=== PATIENT | male | born 1940 | race Caucasian/White ===

== ENCOUNTER 2017-06-02 10:13 | Day surgery (SDC) | payer MEDICARE, BC ==
[~2017-06-02 10:13] MED LIST: Lactated Ringers 1,000 ML IV SCH; Sodium Chloride 0.9% 10 ML Syringe FLUSH PRN
[2017-06-02] MEDS ORDERED: Sodium Chloride 0.9% 10 ML Syringe FLUSH PRN (10:15)
[2017-06-02] MEDS ORDERED: Lactated Ringers 1,000 ML IV SCH (10:15)
--- NOTE | 2017-06-02 12:37 | PCM.PN ---
- General Info Date of Service: 06/02/17 - Review of Systems Systems Review Comment:: 77-year-old male referred for colonoscopy. He says his last colon exam was 6 or 7 years ago. He denies any recent change in bowel habits. He also denies any known family history of colon cancer. He is medically stable to proceed today with no significant recent change in his health status. I have discussed the proposed colonoscopy with the patient. Risks such as but not limited to bleeding and GI injury reviewed. He appears to understand and agrees to proceed. - Patient Data Vitals - Most Recent: Last Vital Signs Temp 98.4 F 06/02/17 10:49 Pulse 55 L 06/02/17 10:49 Resp 20 06/02/17 10:49 BP 146/67 H 06/02/17 10:49 Pulse Ox 92 L 06/02/17 10:49 Weight - Most Recent: 77.111 kg Med Orders - Current: Current Medications Lactated Ringer's (Ringers, Lactated) 1,000 mls @ 125 mls/hr IV ASDIRECTED ARMIDA Last Admin: 06/02/17 11:23 Dose: 125 mls/hr Sodium Chloride (Saline Flush) 10 ml FLUSH ASDIRECTED PRN PRN Reason: Keep Vein Open - Problem List Review Problem List Initiated/Reviewed/Updated: Yes - My Orders Last 24 Hours: My Active Orders 06/02/17 10:00 Patient Status [ADT] Routine Peripheral IV Care [RC] . DIRECTED Verify Patient Consent Obtain [RC] ASDIRECTED Lactated Ringers [Ringers, Lactated] 1,000 ml IV ASDIRECTED Sodium Chloride 0.9% [Saline Flush] 10 ml FLUSH ASDIRECTED PRN Peripheral IV Insertion Adult [OM.PC] Routine - Assessment Assessment:: Colon cancer screening - Plan Plan:: Colonoscopy
[2017-06-02] MEDS ORDERED: fentaNYL 100 MCG/2 ML SDV ONE ×2 (12:44→13:20)
[2017-06-02] MEDS ORDERED: Midazolam 1 MG/ML 2 ML SDV ONE ×2 (12:45→13:20)
[2017-06-02] MEDS ORDERED: Propofol 200 MG/20 ML SDV ONE ×2 (12:45→13:20)
--- NOTE | 2017-06-02 13:30 | PCM.OPNOTE ---
- General Post-Op/Procedure Note Date of Surgery/Procedure: 06/02/17 Operative Procedure(s): Colonoscopy with polypectomy Findings: Small a descending colon polyp Moderate sigmoid diverticulosis Pre Op Diagnosis: Colon cancer screening Post-Op Diagnosis: Colon polyp. Diverticulosis Anesthesia Technique: MAC Primary Surgeon: Ernst Owens Pathology: Ascending colon polyp Output, Urine Amount: 0 EBL in mLs: 0 Complications: None Condition: Good Free Text/Narrative:: Intake & Output 06/01/17 06/02/17 06/02/17 22:59 06:59 14:59 Intake Total 900 Balance 900
--- NOTE | 2017-06-02 15:39 | OR ---
Date of Procedure: 06/02/2017 PREOPERATIVE DIAGNOSIS: Colon cancer screening. POSTOPERATIVE DIAGNOSES: Colon polyp and diverticulosis. OPERATION PERFORMED: Colonoscopy with polypectomy. INDICATIONS FOR SURGERY: This is a 77-year-old male, comes for a colonoscopy. His last colon exam was 6 to 7 years ago. FINDINGS: The patient has a moderate degree of sigmoid diverticulosis, which does not appear to be acutely inflamed. A single polyp in the ascending colon, which is 6 mm in diameter and sessile in configuration was identified and removed. DESCRIPTION OF PROCEDURE: The patient was taken to the operating room. He was given intravenous sedation, and with him in the left lateral decubitus position, digital rectal exam was performed, showing no rectal masses. The Olympus colonoscope was inserted into the rectum. Retroflexed examination of the rectal canal was performed. The scope was then carefully advanced under direct visualization through the entire length of the colon until the cecum was reached. Cecal acquisition was confirmed by noting the normal internal cecal anatomy including the appendiceal orifice and ileocecal valve. The light was also noted to transilluminate the abdominal wall of the right lower quadrant. After examining the cecum, the scope was slowly withdrawn. In the ascending colon, the above-described polyp was identified and it was removed with a cautery snare and retrieved into a polyp trap. The scope was then further withdrawn allowing sequentially reexamination of the all the colonic segments. With no sign of complication, the procedure was terminated after the examination had been complete and the scope was removed. The patient then was taken from the operating room in satisfactory condition. ESTIMATED BLOOD LOSS: Zero. COMPLICATIONS: None. PROGNOSIS: Good. AKHIL Owens MD /[id number]
== END 2017-06-02 15:08 | disposition home or self-care (01) ==
LOC: LL.SDS 10:13
PROVIDERS: ATTEND Surgery
DX: Z12.11 Encounter for screening for malignant neoplasm of colon (principal); D12.2 Benign neoplasm of ascending colon; K57.30 Diverticulosis of large intestine without perforation or abscess without bleeding; Z79.82 Long term (current) use of aspirin; Z79.899 Other long term (current) drug therapy; Z87.891 Personal history of nicotine dependence
CPT/HCPCS: 00810-QZ; 00812; 88305; J2250; J2704; J3010; J7120

== ENCOUNTER 2018-12-18 12:13 | Emergency (ER) | payer MEDICARE, BC ==
[2018-12-18 12:52] LABS: CHLORIDE,CL 106 mmol/L (98-107); SODIUM,NA 144 mmol/L (136-145)
[2018-12-18] MEDS ORDERED: Ondansetron 4 MG Tab.DIS PO ONE (12:56)
[2018-12-18] MEDS ORDERED: Acetaminophen/oxyCODONE 325-5 MG Tab PO ONE (12:58)
--- NOTE | 2018-12-18 13:02 | EDM.PDOC ---
ED HPI GENERAL MEDICAL PROBLEM - General Chief Complaint: Back Pain or Injury Stated Complaint: Back pain Time Seen by Provider: 12/18/18 12:38 Source of Information: Reports: Patient History Limitations: Reports: No Limitations - History of Present Illness INITIAL COMMENTS - FREE TEXT/NARRATIVE: One week history of worsening pain/swelling in upper buttock area on left. Has history of pilonidal cysts but has not had a major issue with it for "30 years". Pain has worsened. He did try to see if chiropractic adjustment would help but it did not. No fevers/chills. Did take ibuprofen earlier today. Small amount of drainage noted per patient. Pain radiates slightly up left lower back and down left upper leg. Unable to sit without pain. Preferred position is to lay on his side to avoid pressure on involved area. No other changes/complaints reported during ROS. Was placed on Keflex by his local provider but has not observed any improvement. Normal BP is around 130 systolic per patient. Suspects elevated reading noted during visit is due to discomfort from the cyst. Lower back pain Pain Score (Numeric/FACES): 7 - Related Data Allergies Allergy/AdvReac Type Severity Reaction Status Date / Time polyester fibers Allergy Rash Verified 12/18/18 12:34 Home Meds: Home Meds Ascorbic Acid [Vitamin C] 1,000 mg PO DAILY 06/02/17 [History] Aspirin [Halfprin] 81 mg PO QAM 06/02/17 [History] Atenolol 1 tab PO BID 06/02/17 [History] Calcium Carbonate [Calcium] 500 mg PO TID 06/02/17 [History] Cholecalciferol (Vitamin D3) [Vitamin D3] 2 cap PO DAILY 06/02/17 [History] Cyanocobalamin/Folic AC/Vit B6 [Folbee] 1 tab PO DAILY 06/02/17 [History] Finasteride 1 tab PO DAILY 06/02/17 [History] Fluocinonide [Lidex 0.05% Crm] 1 applic TOP ASDIRECTED PRN 06/02/17 [History] Fluticasone Propionate [Flonase] 2 spray NASBOTH DAILY 06/02/17 [History] Ibuprofen 2 cap PO Q4H PRN 06/02/17 [History] Mometasone Furoate [Asmanex] 1 puff INH ASDIRECTED 06/02/17 [History] Non-Formulary Medication [NF Drug] 2 ml PO BID 06/02/17 [History] Pramoxine HCl [Prax] 1 applic TP ASDIRECTED PRN 06/02/17 [History] amLODIPine [Norvasc] 10 mg PO BEDTIME 06/02/17 [History] atorvaSTATin Calcium [Atorvastatin Calcium] 80 mg PO DAILY 06/02/17 [History] cephALEXin [Cephalexin] 1 cap PO [id number] 12/18/18 [History] Past Medical History HEENT History: Reports: Cataract Other HEENT History: right cataract Cardiovascular History: Reports: High Cholesterol, Hypertension Respiratory History: Reports: COPD Gastrointestinal History: Reports: GERD, PUD Genitourinary History: Reports: Renal Calculus Other Genitourinary History: hematuria, elevated PSA Musculoskeletal History: Reports: Fracture, Osteoarthritis, Osteoporosis Neurological History: Reports: None Psychiatric History: Reports: None Endocrine/Metabolic History: Reports: Vitamin D Deficiency Hematologic History: Reports: Blood Transfusion(s), Folic Acid Immunologic History: Reports: None Oncologic (Cancer) History: Reports: None Dermatologic History: Reports: Eczema - Past Surgical History GI Surgical History: Reports: Colonoscopy, EGD Male Surgical History: Reports: Prostate Biopsy Musculoskeletal Surgical History: Reports: Other (See Below) Other Dermatological Surgeries/Procedures: Pilonidal cyst Social & Family History - Tobacco Use Smoking Status *Q: Former Smoker Used Tobacco, but Quit: No Month/Year Tobacco Last Used: Quit smoking cigarettes 15 yrs ago. Currently uses chewing tobacco Tobacco Use Comment: Has been using chewing tobacco occassioanlly since he quit smoking cigarettes. One tin will last 2 weeks Second Hand Smoke Exposure: No - Caffeine Use Caffeine Use: Reports: Coffee - Recreational Drug Use Recreational Drug Use: No ED ROS GENERAL - Review of Systems Review Of Systems: ROS reveals no pertinent complaints other than HPI. ED EXAM, GENERAL - Physical Exam Exam: See Below Exam Limited By: No Limitations General Appearance: Alert, WD/WN, No Apparent Distress, Other (laying on left side) Eye Exam: Bilateral Eye: EOMI, PERRL Nose: No: Nasal Deformity, Nasal Swelling, Nasal Drainage Throat/Mouth: Normal Voice, No Airway Compromise Head: Atraumatic, Normocephalic Neck: Supple Respiratory/Chest: No Respiratory Distress GI/Abdominal: Soft, Non-Tender Rectal (Males) Exam: Perirectal Abscess (small amount of drainage noted) Back Exam: No: CVA Tenderness (L), CVA Tenderness (R), Muscle Spasm, Paraspinal Tenderness, Vertebral Tenderness Extremities: Non-Tender, Normal Capillary Refill Neurological: Alert, Oriented, Normal Cognition Psychiatric: Normal Affect, Normal Mood Skin Exam: Warm Course - Vital Signs Last Recorded V/S: Last Vital Signs Temp 36.7 C 12/18/18 12:17 Pulse 78 12/18/18 12:17 Resp 18 12/18/18 12:17 BP 185/44 H 12/18/18 12:17 Pulse Ox 93 L 12/18/18 12:17 - Orders/Labs/Meds Orders: Active Orders 24 hr Category Date Time Status UA W/MICROSCOPIC [URIN] Stat Lab 12/18/18 12:17 Ordered Labs: Laboratory Tests 12/18/18 12/18/18 Range/Units 12:20 12:20 WBC 11.4 H (4.0-10.2) K/uL RBC 3.88 L (4.33-5.41) M/uL Hgb 12.2 L (13.1-16.8) g/dL Hct 35.8 L (39.0-49.0) % MCV 92.3 (84.0-98.0) fL MCH 31.4 (28.2-33.3) pg MCHC 34.1 (31.7-36.0) g/dL RDW 13.6 (11.2-14.1) % Plt Count 269 (150-350) K/uL Neut % (Auto) 79.6 (45.0-80.0) % Lymph % (Auto) 10.2 (10.0-50.0) % Bowman % (Auto) 8.7 (2.0-14.0) % Eos % (Auto) 1.3 (0.0-5.0) % Baso % (Auto) 0.2 (0.0-2.0) % Neut # (Auto) 9.06 H (1.40-7.00) K/uL Lymph # (Auto) 1.16 (0.50-3.50) K/uL Bowman # (Auto) 0.99 (0.00-1.00) K/uL Eos # (Auto) 0.15 (0.00-0.50) K/uL Baso # (Auto) 0.02 (0.00-0.20) K/uL Sodium 144 (136-145) mmol/L Potassium 3.9 (3.5-5.1) mmol/L Chloride 106 (98-107) mmol/L Carbon Dioxide 27.1 (21.0-32.0) mmol/L BUN 21 H (7-18) mg/dL Creatinine 0.99 (0.51-1.17) mg/dL Est Cr Clr Drug Dosing 68.64 mL/min Estimated GFR (MDRD) > 60 mL/min Glucose 120 H (74-106) mg/dL Calcium 9.7 (8.5-10.1) mg/dL Total Bilirubin 0.5 (0.2-1.0) mg/dL AST 20 (15-37) U/L ALT 34 (12-78) U/L Alkaline Phosphatase 70 (46-116) IU/L Total Protein 6.8 (6.4-8.2) g/dL Albumin 2.6 L (3.4-5.0) g/dL Meds: Medications Discontinued Medications Generic Name Dose Route Start Last Admin Trade Name Freq PRN Reason Stop Dose Admin Ondansetron HCl 4 mg 12/18/18 12:56 Zofran Odt PO 12/18/18 12:57 ONETIME ONE Oxycodone/Acetaminophen 2 tab 12/18/18 12:58 Percocet 325-5 Mg PO 12/18/18 12:59 ONETIME ONE - Re-Assessments/Exams Free Text/Narrative Re-Assessment/Exam: 12/18/18 13:08 For now will have patient continue the Keflex. The definitive treatment for a pilonidal abscess is an I&D however. Call placed to who was front end developer for surgery at [facility] in [place]. He is willing to see the patient this afternoon to evaluate him for an I&D at the [facility]. Patient is able to have his son drive him to the clinic. One dose of Zofran and Percocet was given to the patient in the ER to help with discomfort. He was discharged from the ER and is to present to the [facility] in [place] later this afternoon for his appointment. Departure - Departure Time of Disposition: 13:15 Disposition: Home, Self-Care 01 Condition: Good Clinical Impression: Cyst, pilonidal, with abscess - Discharge Information *PRESCRIPTION DRUG MONITORING PROGRAM REVIEWED*: Not Applicable *COPY OF PRESCRIPTION DRUG MONITORING REPORT IN PATIENT TINO: Not Applicable Instructions: Pilonidal Cyst Referrals: Ronaldo Gonzalez PA [Primary Care Provider] - Forms: ED Department Discharge Additional Instructions: Follow up this afternoon at [facility] in [place] and have cyct incised and drained by . Aftercare instructions per . Follow up otherwise as needed if you have further/worsening problems. Drive directly to the clinic after discharge from the ER as they are waiting for you. - My Orders Last 24 Hours: My Active Orders 12/18/18 12:17 UA W/MICROSCOPIC [URIN] Stat - Assessment/Plan Last 24 Hours: My Active Orders 12/18/18 12:17 UA W/MICROSCOPIC [URIN] Stat
== END 2018-12-18 13:55 | disposition home or self-care (01) ==
LOC: LL.ED 12:13
DX: L05.01 Pilonidal cyst with abscess (principal); I10 Essential (primary) hypertension; J44.9 Chronic obstructive pulmonary disease, unspecified; K21.9 Gastro-esophageal reflux disease without esophagitis; Z91.048 Other nonmedicinal substance allergy status; Z79.82 Long term (current) use of aspirin; Z79.899 Other long term (current) drug therapy; E78.00 Pure hypercholesterolemia, unspecified; Z87.442 Personal history of urinary calculi; Z87.891 Personal history of nicotine dependence
CPT/HCPCS: 36415; 80053; 85025; 99283; A9270

== ENCOUNTER 2019-03-06 14:20 | Inpatient (IN) | payer MEDICARE, BC ==
--- NOTE | 2019-03-06 16:37 | PCM.HP.2 ---
H&P History of Present Illness - General Date of Service: 03/06/19 Source of Information: Patient, Family History Limitations: Reports: No Limitations, Altered Mental Status - History of Present Illness Initial Comments - Free Text/Narative: Patient is a 78-year-old gentleman who was admitted at [facility] with chief complaint of degenerative degenerated lumbar intervertebral disc disease patient underwent multiple lumbar disc discectomies level lumbar 345 with familia placement Onset of Symptoms: Reports: Gradual Duration of Symptoms: Reports: Chronic, Constant Location: Reports: Back Quality: Reports: Ache, Throbbing Severity: Moderate Improves with: Reports: Other (Surgery) Worsens with: Reports: Other Lower Back Pain Score (Numeric/FACES): 8 - Related Data Allergies/Adverse Reactions: Allergies Allergy/AdvReac Type Severity Reaction Status Date / Time polyester fibers Allergy Rash Verified 12/18/18 12:34 Home Medications: Home Meds Ascorbic Acid [Vitamin C] 1,000 mg PO DAILY 06/02/17 [History] Aspirin [Halfprin] 81 mg PO QAM 06/02/17 [History] Atenolol 1 tab PO BID 06/02/17 [History] Calcium Carbonate [Calcium] 1,500 mg PO BID 06/02/17 [History] Cholecalciferol (Vitamin D3) [Vitamin D3] 2 cap PO DAILY 06/02/17 [History] Cyanocobalamin/Folic AC/Vit B6 [Folbee] 1 tab PO DAILY 06/02/17 [History] Finasteride 1 tab PO DAILY 06/02/17 [History] Fluticasone Propionate [Flonase] 2 spray NASBOTH DAILY 06/02/17 [History] Mometasone Furoate [Asmanex] 1 puff INH DAILY 06/02/17 [History] Non-Formulary Medication [NF Drug] 2 ml PO BID 06/02/17 [History] Pramoxine HCl [Prax] 1 applic TP ASDIRECTED PRN 06/02/17 [History] amLODIPine [Norvasc] 10 mg PO BEDTIME 06/02/17 [History] atorvaSTATin Calcium [Atorvastatin Calcium] 80 mg PO DAILY 06/02/17 [History] Cyclobenzaprine [Flexeril] 10 mg PO Q8HR PRN 03/06/19 [History] Omeprazole 20 mg PO DAILY 03/06/19 [History] oxyCODONE 5 mg PO Q4HR PRN 03/06/19 [History] Past Medical History HEENT History: Reports: Cataract Other HEENT History: right cataract Cardiovascular History: Reports: High Cholesterol, Hypertension Respiratory History: Reports: COPD Gastrointestinal History: Reports: GERD, PUD Genitourinary History: Reports: Renal Calculus Other Genitourinary History: hematuria, elevated PSA Musculoskeletal History: Reports: Fracture, Osteoarthritis, Osteoporosis Neurological History: Reports: None Psychiatric History: Reports: None Endocrine/Metabolic History: Reports: Vitamin D Deficiency Hematologic History: Reports: Blood Transfusion(s), Folic Acid Immunologic History: Reports: None Oncologic (Cancer) History: Reports: None Dermatologic History: Reports: Eczema - Past Surgical History GI Surgical History: Reports: Colonoscopy, EGD Male Surgical History: Reports: Prostate Biopsy Neurological Surgical History: Reports: Spinal Fusion Musculoskeletal Surgical History: Reports: Other (See Below) Social & Family History - Tobacco Use Smoking Status *Q: Former Smoker Used Tobacco, but Quit: Yes Month/Year Tobacco Last Used: 10/2017 - Caffeine Use Caffeine Use: Reports: Coffee, Soda - Recreational Drug Use Recreational Drug Use: No H&P Review of Systems - Review of Systems: Review Of Systems: See Below General: Reports: Weakness HEENT: Reports: No Symptoms Pulmonary: Reports: Shortness of Breath Cardiovascular: Reports: No Symptoms Gastrointestinal: Reports: No Symptoms Genitourinary: Reports: No Symptoms Musculoskeletal: Reports: Back Pain Skin: Reports: No Symptoms Psychiatric: Reports: No Symptoms Neurological: Reports: Confusion Hematologic/Lymphatic: Reports: No Symptoms Immunologic: Reports: No Symptoms Exam - Exam Exam: See Below - Vital Signs Vital Signs: Last Vital Signs Temp 100.8 F H 03/06/19 14:35 Pulse 67 03/06/19 14:35 Resp 20 03/06/19 14:35 BP 188/74 H 03/06/19 14:35 Pulse Ox 96 03/06/19 14:35 Weight: 221 lb - Exam General: Alert, Oriented, 4 HEENT: PERRLA, Hearing Intact, Mucosa Moist & [place], Nares Patent, Normal Nasal Septum, Posterior Pharynx Clear, Conjunctiva Clear, EOMI, EACs Clear, TMs Clear Neck: Supple, Trachea Midline, 2 Lungs: Decreased Breath Sounds, Rales Cardiovascular: Regular Rate, Regular Rhythm GI/Abdominal Exam: Normal Bowel Sounds, Soft, Non-Tender, No Organomegaly, No Distention, No Abnormal Bruit, No Mass, Pelvis Stable (Male) Exam: Deferred Rectal (Males) Exam: Deferred Back Exam: Decreased Range of Motion Extremities: Normal Inspection, Normal Range of Motion, Non-Tender, No Pedal Edema, Normal Capillary Refill Skin: Warm, Dry, Intact Neurological: Cranial Nerves Intact, Reflexes Equal Bilateral Neuro Extensive - Mental Status: Alert Psychiatric: Alert, Normal Affect - Problem List (1) Lumbar degenerative disc disease SNOMED Code(s): 42716217 ICD Code: M51.36 - OTHER INTERVERTEBRAL DISC DEGENERATION, LUMBAR REGION Status: Acute Current Visit: Yes Problem Details: Ration will be admitted to swing bed for strengthening and rehabilitation Problem List Initiated/Reviewed/Updated: Yes - Mortality Measure Prognosis:: Good
[2019-03-06] MEDS ORDERED: oxyCODONE 5 MG Tab PO PRN (16:48)
[2019-03-06] MEDS ORDERED: Camphor/Menthol 0.5-0.5% Lotion 222 ML Bottle TOP PRN (16:50)
[2019-03-06] MEDS ORDERED: Acetaminophen 325 MG Tab PO PRN (17:24)
[2019-03-06] MEDS: Atenolol 25 MG Tab PO SCH (17:56)
[2019-03-06] MEDS ORDERED: Calcium Carbonate 500 MG Tablet PO SCH (18:00)
[2019-03-06] MEDS ORDERED: Calcium Carbonate 500 MG Tab.Chew PO SCH (18:15)
[2019-03-06] MEDS: Calcium Carbonate 750 MG Tab.Chew PO SCH (19:31)
[2019-03-06] MEDS: Cyclobenzaprine 10 MG Tab PO PRN (19:32)
[2019-03-06] MEDS: amLODIPine 5 MG Tab PO SCH (19:32)
[2019-03-06] MEDS: APPLE CIDER VINEGAR PO SCH (19:32)
[2019-03-06] MEDS: Acetaminophen 325 MG Tab PO PRN (19:33)
[2019-03-07 07:51] LABS: CHLORIDE,CL 105 mmol/L (98-107); SODIUM,NA 140 mmol/L (136-145)
[2019-03-07] MEDS: Fluticasone Propionate Nasal Spray 16 GM Bottle NASBOTH SCH (07:59)
[2019-03-07] MEDS: Aspirin 81 MG Tab.EC PO SCH (07:59)
[2019-03-07] MEDS ORDERED: Vitamin B Complex Tab PO SCH (08:00)
[2019-03-07] MEDS: atorvaSTATin 40 MG Tab PO SCH (08:00)
[2019-03-07] MEDS: Omeprazole 20 MG Cap.CR PO SCH (08:00)
[2019-03-07] MEDS ORDERED: Mometasone Furoate HFA 100mcg/Puff 13 GM Inhaler INH SCH (08:00)
[2019-03-07] MEDS: Finasteride 5 MG Tab PO SCH (08:00)
[2019-03-07] MEDS: Calcium Carbonate 750 MG Tab.Chew PO SCH (08:01)
[2019-03-07] MEDS: Atenolol 25 MG Tab PO SCH ×2 (08:01→17:21)
[2019-03-07] MEDS: Ascorbic Acid 500 MG Tab PO SCH (09:33)
[2019-03-07] MEDS: Mometasone Furoate Powder 220 MCG/Puff 14 Dose Inhaler INH SCH (09:33)
[2019-03-07] MEDS: Cholecalciferol (Vitamin D3) 10 MCG Tab PO SCH (09:34)
[2019-03-07] MEDS: Acetaminophen 325 MG Tab PO PRN (09:37)
[2019-03-07] MEDS: APPLE CIDER VINEGAR PO SCH (09:41)
[2019-03-07] MEDS: Cyanocobalamin/Folic Acid/Pyridoxine Tab PO SCH (12:30)
[2019-03-07] MEDS: amLODIPine 5 MG Tab PO SCH (19:05)
[2019-03-08] MEDS: Mometasone Furoate Powder 220 MCG/Puff 14 Dose Inhaler INH SCH (07:19)
[2019-03-08] MEDS: Fluticasone Propionate Nasal Spray 16 GM Bottle NASBOTH SCH (07:19)
[2019-03-08] MEDS: Cyanocobalamin/Folic Acid/Pyridoxine Tab PO SCH (07:19)
[2019-03-08] MEDS: Aspirin 81 MG Tab.EC PO SCH (07:20)
[2019-03-08] MEDS: atorvaSTATin 40 MG Tab PO SCH (07:20)
[2019-03-08] MEDS: Omeprazole 20 MG Cap.CR PO SCH (07:21)
[2019-03-08] MEDS: Finasteride 5 MG Tab PO SCH (07:22)
[2019-03-08] MEDS: Calcium Carbonate 750 MG Tab.Chew PO SCH (07:22)
[2019-03-08] MEDS: Ascorbic Acid 500 MG Tab PO SCH (07:23)
[2019-03-08] MEDS: Cholecalciferol (Vitamin D3) 10 MCG Tab PO SCH (07:24)
[2019-03-08] MEDS: Atenolol 25 MG Tab PO SCH ×2 (07:31→17:16)
[2019-03-08] MEDS: Acetaminophen 325 MG Tab PO PRN (07:32)
[2019-03-08] MEDS: Cyclobenzaprine 10 MG Tab PO PRN (12:37)
[2019-03-08] MEDS: amLODIPine 5 MG Tab PO SCH (19:44)
[2019-03-09] MEDS: Acetaminophen 325 MG Tab PO PRN ×2 (01:19→21:34)
[2019-03-09] MEDS: Cyclobenzaprine 10 MG Tab PO PRN ×3 (01:21→21:33)
[2019-03-09] MEDS: Fluticasone Propionate Nasal Spray 16 GM Bottle NASBOTH SCH (07:49)
[2019-03-09] MEDS: Cholecalciferol (Vitamin D3) 10 MCG Tab PO SCH (07:49)
[2019-03-09] MEDS: Mometasone Furoate Powder 220 MCG/Puff 14 Dose Inhaler INH SCH (07:50)
[2019-03-09] MEDS: Aspirin 81 MG Tab.EC PO SCH (07:52)
[2019-03-09] MEDS: Cyanocobalamin/Folic Acid/Pyridoxine Tab PO SCH (07:52)
[2019-03-09] MEDS: atorvaSTATin 40 MG Tab PO SCH (07:53)
[2019-03-09] MEDS: Finasteride 5 MG Tab PO SCH (07:54)
[2019-03-09] MEDS: Omeprazole 20 MG Cap.CR PO SCH (07:54)
[2019-03-09] MEDS: Atenolol 25 MG Tab PO SCH ×2 (07:55→17:09)
[2019-03-09] MEDS: Ascorbic Acid 500 MG Tab PO SCH (07:55)
[2019-03-09] MEDS: Calcium Carbonate 750 MG Tab.Chew PO SCH (07:56)
[2019-03-09] MEDS: amLODIPine 5 MG Tab PO SCH (21:33)
[2019-03-10] MEDS: Atenolol 25 MG Tab PO SCH ×2 (07:54→17:06)
[2019-03-10] MEDS: Omeprazole 20 MG Cap.CR PO SCH (07:54)
[2019-03-10] MEDS: Cyclobenzaprine 10 MG Tab PO PRN (07:55)
[2019-03-10] MEDS: Finasteride 5 MG Tab PO SCH (07:55)
[2019-03-10] MEDS: atorvaSTATin 40 MG Tab PO SCH (07:55)
[2019-03-10] MEDS: Ascorbic Acid 500 MG Tab PO SCH (07:56)
[2019-03-10] MEDS: Cyanocobalamin/Folic Acid/Pyridoxine Tab PO SCH (07:56)
[2019-03-10] MEDS: Mometasone Furoate Powder 220 MCG/Puff 14 Dose Inhaler INH SCH (07:56)
[2019-03-10] MEDS: Fluticasone Propionate Nasal Spray 16 GM Bottle NASBOTH SCH (07:57)
[2019-03-10] MEDS: Aspirin 81 MG Tab.EC PO SCH (09:14)
[2019-03-10] MEDS: Calcium Carbonate 750 MG Tab.Chew PO SCH (09:15)
[2019-03-10] MEDS: Cholecalciferol (Vitamin D3) 10 MCG Tab PO SCH (09:15)
[2019-03-10] MEDS: amLODIPine 5 MG Tab PO SCH (19:27)
[2019-03-11] MEDS: Cholecalciferol (Vitamin D3) 10 MCG Tab PO SCH (08:08)
[2019-03-11] MEDS: Mometasone Furoate Powder 220 MCG/Puff 14 Dose Inhaler INH SCH (08:09)
[2019-03-11] MEDS: Fluticasone Propionate Nasal Spray 16 GM Bottle NASBOTH SCH (08:09)
[2019-03-11] MEDS: Cyanocobalamin/Folic Acid/Pyridoxine Tab PO SCH (08:11)
[2019-03-11] MEDS: Ascorbic Acid 500 MG Tab PO SCH (08:11)
[2019-03-11] MEDS: Atenolol 25 MG Tab PO SCH ×2 (08:12→17:08)
[2019-03-11] MEDS: atorvaSTATin 40 MG Tab PO SCH (08:12)
[2019-03-11] MEDS: Finasteride 5 MG Tab PO SCH (08:13)
[2019-03-11] MEDS: Omeprazole 20 MG Cap.CR PO SCH (08:13)
[2019-03-11] MEDS: Calcium Carbonate 750 MG Tab.Chew PO SCH (08:14)
[2019-03-11] MEDS: Aspirin 81 MG Tab.EC PO SCH (08:14)
[2019-03-11] MEDS: amLODIPine 5 MG Tab PO SCH (19:37)
[2019-03-11] MEDS: Cyclobenzaprine 10 MG Tab PO PRN (19:37)
[2019-03-12] MEDS: Acetaminophen 325 MG Tab PO PRN (06:21)
[2019-03-12] MEDS: Cyclobenzaprine 10 MG Tab PO PRN (06:22)
[2019-03-12] MEDS: Fluticasone Propionate Nasal Spray 16 GM Bottle NASBOTH SCH (08:00)
[2019-03-12] MEDS: Mometasone Furoate Powder 220 MCG/Puff 14 Dose Inhaler INH SCH (08:00)
[2019-03-12] MEDS: Cholecalciferol (Vitamin D3) 10 MCG Tab PO SCH (08:02)
[2019-03-12] MEDS: Aspirin 81 MG Tab.EC PO SCH (08:03)
[2019-03-12] MEDS: Cyanocobalamin/Folic Acid/Pyridoxine Tab PO SCH (08:03)
[2019-03-12] MEDS: Omeprazole 20 MG Cap.CR PO SCH (08:03)
[2019-03-12] MEDS: Finasteride 5 MG Tab PO SCH (08:03)
[2019-03-12] MEDS: Ascorbic Acid 500 MG Tab PO SCH (08:03)
[2019-03-12] MEDS: Atenolol 25 MG Tab PO SCH ×2 (08:03→17:18)
[2019-03-12] MEDS: atorvaSTATin 40 MG Tab PO SCH (08:03)
[2019-03-12] MEDS: Calcium Carbonate 750 MG Tab.Chew PO SCH (08:04)
[2019-03-12] MEDS: amLODIPine 5 MG Tab PO SCH (19:06)
[2019-03-13] MEDS: Mometasone Furoate Powder 220 MCG/Puff 14 Dose Inhaler INH SCH (07:58)
[2019-03-13] MEDS: Fluticasone Propionate Nasal Spray 16 GM Bottle NASBOTH SCH (07:59)
[2019-03-13] MEDS: Aspirin 81 MG Tab.EC PO SCH (08:01)
[2019-03-13] MEDS: Cyanocobalamin/Folic Acid/Pyridoxine Tab PO SCH (08:01)
[2019-03-13] MEDS: atorvaSTATin 40 MG Tab PO SCH (08:02)
[2019-03-13] MEDS: Omeprazole 20 MG Cap.CR PO SCH (08:02)
[2019-03-13] MEDS: Calcium Carbonate 750 MG Tab.Chew PO SCH (08:03)
[2019-03-13] MEDS: Finasteride 5 MG Tab PO SCH (08:03)
[2019-03-13] MEDS: Atenolol 25 MG Tab PO SCH ×2 (08:03→17:20)
[2019-03-13] MEDS: Cholecalciferol (Vitamin D3) 10 MCG Tab PO SCH (08:04)
[2019-03-13] MEDS: Ascorbic Acid 500 MG Tab PO SCH (08:04)
[2019-03-13] MEDS: amLODIPine 5 MG Tab PO SCH (19:05)
[2019-03-14] MEDS: Fluticasone Propionate Nasal Spray 16 GM Bottle NASBOTH SCH (07:45)
[2019-03-14] MEDS: Mometasone Furoate Powder 220 MCG/Puff 14 Dose Inhaler INH SCH (07:45)
[2019-03-14] MEDS: Cyanocobalamin/Folic Acid/Pyridoxine Tab PO SCH (07:46)
[2019-03-14] MEDS: Aspirin 81 MG Tab.EC PO SCH (07:46)
[2019-03-14] MEDS: Omeprazole 20 MG Cap.CR PO SCH (07:47)
[2019-03-14] MEDS: atorvaSTATin 40 MG Tab PO SCH (07:47)
[2019-03-14] MEDS: Atenolol 25 MG Tab PO SCH ×2 (07:48→17:13)
[2019-03-14] MEDS: Finasteride 5 MG Tab PO SCH (07:48)
[2019-03-14] MEDS: Calcium Carbonate 750 MG Tab.Chew PO SCH (07:49)
[2019-03-14] MEDS: Ascorbic Acid 500 MG Tab PO SCH (07:49)
[2019-03-14] MEDS: Cholecalciferol (Vitamin D3) 10 MCG Tab PO SCH (07:50)
[2019-03-14] MEDS: amLODIPine 5 MG Tab PO SCH (19:30)
[2019-03-14] MEDS: Acetaminophen 325 MG Tab PO PRN (19:31)
[2019-03-15] MEDS: Cyanocobalamin/Folic Acid/Pyridoxine Tab PO SCH (08:02)
[2019-03-15] MEDS: Fluticasone Propionate Nasal Spray 16 GM Bottle NASBOTH SCH (08:02)
[2019-03-15] MEDS: Aspirin 81 MG Tab.EC PO SCH (08:03)
[2019-03-15] MEDS: Omeprazole 20 MG Cap.CR PO SCH (08:04)
[2019-03-15] MEDS: atorvaSTATin 40 MG Tab PO SCH (08:04)
[2019-03-15] MEDS: Finasteride 5 MG Tab PO SCH (08:04)
[2019-03-15] MEDS: Atenolol 25 MG Tab PO SCH ×2 (08:05→17:33)
[2019-03-15] MEDS: Ascorbic Acid 500 MG Tab PO SCH (08:05)
[2019-03-15] MEDS: Calcium Carbonate 750 MG Tab.Chew PO SCH (08:05)
[2019-03-15] MEDS: Cholecalciferol (Vitamin D3) 10 MCG Tab PO SCH (08:06)
[2019-03-15] MEDS: Mometasone Furoate Powder 220 MCG/Puff 14 Dose Inhaler INH SCH (11:52)
--- NOTE | 2019-03-15 13:15 | PCM.DCSUM1 ---
Discharge Summary - Hospital Course Free Text/Narrative:: Patient was admitted to [facility] for PT/OT after lumbar spine surgery. Patient had multiple lumbar discectomies with familia placement. He was here for rehabilitiation of strengthening, ambulation and ADL care with PT and OT. He has reached his baseline of function and is ready to discharge home. He elects to go home without services as he does not plan to remain homebound. He is active and wants to remain part of the community. He has minimal pain to his lumbar spine area. He does note some radiation of pain occasionally down his left leg, but this does not interfere with his ambulation or abilities. He does not use pain medication for pain control. He will be discharged to his home on 03/16/2019. Patient will return to his PCP on 03/21/19 for staple removal. He has a follow up appointment on 03/26/19 at 10:15am with his surgeon Dr. Nam Wilder DO at [phone] [facility]. - Discharge Data Discharge Date: 03/16/19 Discharge Disposition: Home, Self-Care 01 Condition: Good - Referral to Home Health Primary Care Physician: Yo Pandey MD - Patient Summary/Data Consults: Consultations 03/07/19 08:38 PT Evaluation and Treatment [CONS] Routine 03/07/19 08:39 OT Evaluation and Treatment [CONS] Routine - Patient Instructions Diet: Usual Diet as Tolerated Activity: Apply Ice, As Tolerated Driving: May Drive Today Showering/Bathing: May Shower Wound/Incision Care: Keep Operative Site/Wound Site Clean and Dry Notify Provider of: Fever, Increased Pain, Swelling and Redness, Drainage - Discharge Plan *PRESCRIPTION DRUG MONITORING PROGRAM REVIEWED*: Not Applicable *COPY OF PRESCRIPTION DRUG MONITORING REPORT IN PATIENT TINO: Not Applicable Prescriptions/Med Rec: Cyclobenzaprine [Flexeril] 10 mg PO Q8HR PRN 4 Days #12 tablet PRN Reason: Other Atenolol 1 tab PO BID 30 Days #60 tablet atorvaSTATin Calcium [Atorvastatin Calcium] 80 mg PO DAILY 30 Days #30 tablet Finasteride 1 tab PO DAILY 30 Days #30 tablet Home Medications: Home Meds Ascorbic Acid [Vitamin C] 1,000 mg PO DAILY 06/02/17 [History] Aspirin [Halfprin] 81 mg PO QAM 06/02/17 [History] Calcium Carbonate [Calcium] 1,500 mg PO DAILY 06/02/17 [History] Cholecalciferol (Vitamin D3) [Vitamin D3] 2 cap PO DAILY 06/02/17 [History] Cyanocobalamin/Folic AC/Vit B6 [Folbee] 1 tab PO DAILY 06/02/17 [History] Fluticasone Propionate [Flonase] 2 spray NASBOTH DAILY 06/02/17 [History] Non-Formulary Medication [NF Drug] 2 ml PO BID 06/02/17 [History] Pramoxine HCl [Prax] 1 applic TP ASDIRECTED PRN 06/02/17 [History] amLODIPine [Norvasc] 10 mg PO BEDTIME 06/02/17 [History] Omeprazole 20 mg PO DAILY 03/06/19 [History] Mometasone Furoate [Asmanex 220 MCG] 1 puff PO DAILY 03/07/19 [History] Acetaminophen [Tylenol] 650 mg PO Q4H PRN tablet 03/15/19 [Rx] Atenolol 1 tab PO BID 30 Days #60 tablet 03/15/19 [Rx] Calcium Carbonate [Tums Extra Strength] 1,500 mg PO DAILY tab.chew 03/15/19 [Rx ] Cyanocobalamin/FA/Pyridoxine [Folbic] 1 tab PO DAILY tablet 03/15/19 [Rx] Cyclobenzaprine [Flexeril] 10 mg PO Q8HR PRN 4 Days #12 tablet 03/15/19 [Rx] Finasteride 1 tab PO DAILY 30 Days #30 tablet 03/15/19 [Rx] Mometasone Furoate [Asmanex 220 MCG] 0 puff INH DAILY inhaler 03/15/19 [Rx] atorvaSTATin Calcium [Atorvastatin Calcium] 80 mg PO DAILY 30 Days #30 tablet [Rx] - Discharge Summary/Plan Comment DC Time >30 min.: Yes - General Info Date of Service: 03/15/19 Admission Dx/Problem (Free Text: lumbar back surgery with multiple dissections and familia placement, pain control and PT/OT Functional Status: Reports: Pain Controlled - Review of Systems General: Reports: No Symptoms HEENT: Reports: No Symptoms Pulmonary: Reports: No Symptoms Cardiovascular: Reports: No Symptoms Gastrointestinal: Reports: No Symptoms Genitourinary: Reports: No Symptoms Musculoskeletal: Reports: No Symptoms Skin: Reports: No Symptoms Neurological: Reports: No Symptoms Psychiatric: Reports: No Symptoms - Patient Data Vitals - Most Recent: Last Vital Signs Temp 97.6 F 03/15/19 08:00 Pulse 92 03/15/19 08:05 Resp 20 03/15/19 08:00 BP 187/79 H 03/15/19 08:05 Pulse Ox 96 03/15/19 08:00 Weight - Most Recent: 206 lb 11.2 oz I&O - Last 24 hours: Intake & Output 03/14/19 03/15/19 03/15/19 22:59 06:59 14:59 Intake Total 540 630 Balance 540 630 Med Orders - Current: Current Medications Acetaminophen (Tylenol) 650 mg PO Q4H PRN PRN Reason: Pain (moderate 4-6) Last Admin: 03/14/19 19:31 Dose: 650 mg Amlodipine Besylate (Norvasc) 10 mg PO BEDTIME [facility] Last Admin: 03/14/19 19:30 Dose: 10 mg Ascorbic Acid (Vitamin C) 1,000 mg PO DAILY [facility] Last Admin: 03/15/19 08:05 Dose: 1,000 mg Aspirin (Halfprin) 81 mg PO QAM [facility] Last Admin: 03/15/19 08:03 Dose: 81 mg Atenolol (Tenormin) 25 mg PO BID [facility] Last Admin: 03/15/19 08:05 Dose: 25 mg Atorvastatin Calcium (Lipitor) 80 mg PO DAILY [facility] Last Admin: 03/15/19 08:04 Dose: 80 mg Calcium Carbonate/Glycine (Tums Extra Strength) 1,500 mg PO DAILY [facility] Last Admin: 03/15/19 08:05 Dose: 1,500 mg Camphor/Menthol (Sarna Lotion) 1 ml TOP ASDIRECTED PRN PRN Reason: Itching Cholecalciferol (Vitamin D3) 20 mcg PO DAILY [facility] Last Admin: 03/15/19 08:06 Dose: 20 mcg Cyclobenzaprine HCl (Flexeril) 10 mg PO Q8HR PRN PRN Reason: Muscle Spasm Last Admin: 03/12/19 06:22 Dose: 10 mg Finasteride (Proscar) 5 mg PO DAILY [facility] Last Admin: 03/15/19 08:04 Dose: 5 mg Fluticasone Propionate (Flonase) 0 gm NASBOTH DAILY [facility] Last Admin: 03/15/19 08:02 Dose: 2 sprays Folic Acid/Cyanocobalamin/pyridoxin (Folbic Tablet) 1 tab PO DAILY [facility] Last Admin: 03/15/19 08:02 Dose: 1 tab Mometasone Furoate (Asmanex 220 Mcg) 0 puff INH DAILY [facility] Last Admin: 03/15/19 11:52 Dose: 1 puff Omeprazole (Omeprazole) 20 mg PO DAILY [facility] Last Admin: 03/15/19 08:04 Dose: 20 mg Oxycodone HCl (Oxycodone) 5 mg PO Q4HR PRN PRN Reason: Pain (severe 7-10) Last Admin: 03/08/19 16:00 Dose: 5 mg Discontinued Medications Acetaminophen (Tylenol) 325 mg PO Q4H PRN PRN Reason: Pain (moderate 4-6) Calcium Carbonate/Glycine (Oyster Shell Calcium) 1,500 mg PO BID [facility] Last Admin: 03/06/19 18:05 Dose: Not Given Calcium Carbonate/Glycine (Tums) 1,500 mg PO BID [facility] Calcium Carbonate/Glycine (Tums Extra Strength) 1,500 mg PO BID [facility] Last Admin: 03/07/19 08:01 Dose: 1,500 mg Mometasone Furoate (Asmanex Hfa 100mcg) 0 gm INH DAILY [facility] Last Admin: 03/07/19 09:41 Dose: Not Given Apple Cider Vinegar 0 each PO BID [facility] Last Admin: 03/07/19 09:41 Dose: Not Given Vitamin B Complex (Vitamin B Complex) 1 each PO DAILY [facility] Last Admin: 03/07/19 09:35 Dose: Not Given - Exam General: Reports: Alert, Oriented, Cooperative HEENT: Reports: Pupils Equal, Pupils Reactive Neck: Reports: Supple, Trachea Midline Lungs: Reports: Clear to Auscultation, Normal Respiratory Effort Cardiovascular: Reports: Regular Rate, Regular Rhythm, No Murmurs GI/Abdominal Exam: Normal Bowel Sounds, Soft, Non-Tender Back Exam: Reports: Normal Inspection, Other Extremities: Normal Inspection, Normal Range of Motion Skin: Reports: Warm, Dry, Intact, Other (asher in place to lumbar area.) Wound/Incisions: Reports: Healing Well Psy/Mental Status: Reports: Alert, Normal Affect, Normal Mood
[2019-03-15] MEDS: amLODIPine 5 MG Tab PO SCH (19:46)
[2019-03-15] MEDS: Cyclobenzaprine 10 MG Tab PO PRN (19:48)
[2019-03-16] MEDS: Fluticasone Propionate Nasal Spray 16 GM Bottle NASBOTH SCH (08:26)
[2019-03-16] MEDS: Atenolol 25 MG Tab PO SCH (08:26)
[2019-03-16] MEDS: Mometasone Furoate Powder 220 MCG/Puff 14 Dose Inhaler INH SCH (08:26)
[2019-03-16] MEDS: Finasteride 5 MG Tab PO SCH (08:27)
[2019-03-16] MEDS: atorvaSTATin 40 MG Tab PO SCH (08:27)
[2019-03-16] MEDS: Omeprazole 20 MG Cap.CR PO SCH (08:27)
[2019-03-16] MEDS: Calcium Carbonate 750 MG Tab.Chew PO SCH (08:28)
[2019-03-16] MEDS: Aspirin 81 MG Tab.EC PO SCH (08:28)
[2019-03-16] MEDS: Cyanocobalamin/Folic Acid/Pyridoxine Tab PO SCH (08:28)
[2019-03-16] MEDS: Cholecalciferol (Vitamin D3) 10 MCG Tab PO SCH (08:29)
[2019-03-16] MEDS: Ascorbic Acid 500 MG Tab PO SCH (08:30)
== END 2019-03-16 10:30 | disposition home or self-care (01) | DRG 552 ==
LOC: LL.SWG 14:20
PROVIDERS: ADMIT Family Medicine; ATTEND Family Medicine
DX: M51.36 Other intervertebral disc degeneration, lumbar region (principal); E78.00 Pure hypercholesterolemia, unspecified; I10 Essential (primary) hypertension; J44.9 Chronic obstructive pulmonary disease, unspecified; K21.9 Gastro-esophageal reflux disease without esophagitis; M19.90 Unspecified osteoarthritis, unspecified site; M81.0 Age-related osteoporosis without current pathological fracture; E55.9 Vitamin D deficiency, unspecified; Z88.8 Allergy status to other drugs, medicaments and biological substances; Z79.82 Long term (current) use of aspirin; Z79.899 Other long term (current) drug therapy; Z90.49 Acquired absence of other specified parts of digestive tract; Z87.442 Personal history of urinary calculi; Z87.891 Personal history of nicotine dependence
CPT/HCPCS: 36415; 80048; 85025; 94640; 97110-GO; 97110-GP; 97161-GP; 97165-GO; 97530-GO; 97530-GP; 97535-GO; A9270-GY

== ENCOUNTER 2020-03-23 15:31 | Inpatient (IN) | payer MEDICARE, BC ==
--- NOTE | 2020-03-23 16:17 | EDM.PDOC ---
ED HPI GENERAL MEDICAL PROBLEM - General Chief Complaint: General Stated Complaint: cough, weakness, incontinence Time Seen by Provider: 03/23/20 15:50 Source of Information: Reports: Patient History Limitations: Reports: No Limitations - History of Present Illness INITIAL COMMENTS - FREE TEXT/NARRATIVE: He presents to the emergency department mainly complaining of diffuse weakness. States he can barely get up out of bed. This started 2 days ago. He was incontinent of urine today, but states it is really because he was just too tired to get out of bed. He has a little bit of shortness of breath, but does have COPD and denies a significant change from his baseline. Occasional cough. He was noted to have a fever today of 100.3. He denies nausea or vomiting. No diarrhea. He has been urinating more frequency but denies any dysuria. No chills. No nasal congestion, stuffy head or sore throat. No known exposures. He had called the hospital yesterday complaining of weakness and some cough, but was going to wait until tomorrow to be seen when clinic opens. He has a history of hypertension, hyperlipidemia, GERD, COPD and BPH. Treatments CHEF ASSISTANT: Reports: NSAIDS - Related Data Allergies Allergy/AdvReac Type Severity Reaction Status Date / Time polyester fibers Allergy Rash Verified 03/23/20 15:42 Home Meds: Home Meds Ascorbic Acid [Vitamin C] 1,000 mg PO DAILY 06/02/17 [History] Aspirin [Halfprin] 81 mg PO QAM 06/02/17 [History] Cholecalciferol (Vitamin D3) [Vitamin D3] 2 cap PO DAILY 06/02/17 [History] Cyanocobalamin/Folic AC/Vit B6 [Folbee] 1 tab PO DAILY 06/02/17 [History] Fluticasone Propionate [Flonase] 2 spray NASBOTH DAILY 06/02/17 [History] Non-Formulary Medication [NF Drug] 2 ml PO BID 06/02/17 [History] Pramoxine HCl [Prax] 1 applic TP ASDIRECTED PRN 06/02/17 [History] amLODIPine [Norvasc] 10 mg PO BEDTIME 06/02/17 [History] Omeprazole 20 mg PO DAILY 03/06/19 [History] Mometasone Furoate [Asmanex 220 MCG] 1 puff PO DAILY 03/07/19 [History] Acetaminophen [Tylenol] 650 mg PO Q4H PRN tablet 03/15/19 [Rx] Calcium Carbonate [Tums Extra Strength] 1,500 mg PO DAILY tab.chew 03/15/19 [Rx] Cyclobenzaprine [Flexeril] 10 mg PO Q8HR PRN 4 Days #12 tablet 03/15/19 [Rx] Finasteride 1 tab PO DAILY 30 Days #30 tablet 03/15/19 [Rx] atenoloL [Atenolol] 1 tab PO BID 30 Days #60 tablet 03/15/19 [Rx] atorvaSTATin Calcium [Atorvastatin Calcium] 80 mg PO DAILY 30 Days #30 tablet 03/15/19 [Rx] Cyanocobalamin/Folic AC/Vit B6 [[place] One Tablet] 1 tab PO DAILY 03/23/20 [History] Past Medical History HEENT History: Reports: Cataract Other HEENT History: right cataract Cardiovascular History: Reports: High Cholesterol, Hypertension Respiratory History: Reports: COPD Gastrointestinal History: Reports: GERD, PUD Genitourinary History: Reports: Renal Calculus Other Genitourinary History: hematuria, elevated PSA Musculoskeletal History: Reports: Fracture, Osteoarthritis, Osteoporosis Neurological History: Reports: None Psychiatric History: Reports: None Endocrine/Metabolic History: Reports: Vitamin D Deficiency Hematologic History: Reports: Blood Transfusion(s), Folic Acid Immunologic History: Reports: None Oncologic (Cancer) History: Reports: None Dermatologic History: Reports: Eczema - Past Surgical History GI Surgical History: Reports: Colonoscopy, EGD Male Surgical History: Reports: Prostate Biopsy Neurological Surgical History: Reports: Spinal Fusion Musculoskeletal Surgical History: Reports: Other (See Below) Social & Family History - Tobacco Use Tobacco Use Status *Q: Former Tobacco User Years of Tobacco use: 50 Packs/Tins Daily: 1 Used Tobacco, but Quit: Yes Month/Year Tobacco Last Used: 2004 - Caffeine Use Caffeine Use: Reports: Coffee - Recreational Drug Use Recreational Drug Use: No ED ROS GENERAL - Review of Systems Review Of Systems: See Below Constitutional: Reports: Fever, Weakness. Denies: Chills, Night Sweats HEENT: Denies: Ear Pain, Sinus Problem, Throat Pain Respiratory: Reports: Shortness of Breath, Cough. Denies: Wheezing, Sputum, Hemoptysis Cardiovascular: Denies: Chest Pain, Lightheadedness, Palpitations GI/Abdominal: Denies: Abdominal Pain, Diarrhea, Nausea, Vomiting : Reports: Frequency. Denies: Dysuria, Urgency Skin: Reports: No Symptoms Neurological: Denies: Confusion, Dizziness, Headache Psychiatric: Denies: Anxiety, Depression Hematologic/Lymphatic: Reports: No Symptoms Immunologic: Reports: No Symptoms ED EXAM, GENERAL - Physical Exam Exam: See Below Exam Limited By: No Limitations General Appearance: Alert, WD/WN, No Apparent Distress Ears: Normal External Exam Nose: Normal Inspection, Normal Mucosa Throat/Mouth: Normal Inspection, Normal Lips, Normal Oropharynx Head: Atraumatic, Normocephalic Neck: Normal Inspection, Non-Tender. No: Lymphadenopathy (L), Lymphadenopathy (R) Respiratory/Chest: No Respiratory Distress, Lungs Clear, Normal Breath Sounds Cardiovascular: Regular Rate, Rhythm, No Murmur GI/Abdominal: Normal Bowel Sounds, Soft, Non-Tender, No Mass (Male) Exam: Deferred Rectal (Males) Exam: Deferred Neurological: Alert, Oriented Psychiatric: Normal Affect, Normal Mood Skin Exam: Warm, Dry Course - Vital Signs Last Recorded V/S: Last Vital Signs Temp 37.9 C 03/23/20 15:35 Pulse 93 03/23/20 15:51 Resp 20 03/23/20 15:51 BP 180/65 H 03/23/20 15:51 Pulse Ox 95 03/23/20 15:51 - Orders/Labs/Meds Orders: Active Orders 24 hr Category Date Time Status Admission Status [Patient Status] [ADT] Routine ADT 03/23/20 16:57 Ordered CXR [Chest 1V Frontal] [CR] Stat Exams 03/23/20 16:42 Taken Chest 2V [CR] Stat Exams 03/23/20 16:03 Stop Req CORONAVIRUS COVID-19 [facility]DRA [[facility]] Urgent Lab 03/23/20 16:04 Ordered UA W/MACHO RFLX IF INDICATED [URIN] Stat Lab 03/23/20 16:03 Ordered NS + KCl 20mEq/L [Normal Saline with 20 mEq KCl] 1,000 Med 03/23/20 17:00 Active ml IV ASDIRECTED Medication Orders Potassium Chloride/Sodium Chloride (Normal Saline With 20 Meq Kcl) 1,000 mls @ 100 mls/hr IV ASDIRECTED ARMIDA Labs: Laboratory Tests 03/23/20 03/23/20 Range/Units 16:20 16:20 WBC 5.6 (4.0-10.2) K/uL RBC 4.48 (4.33-5.41) M/uL Hgb 13.8 D (13.1-16.8) g/dL Hct 40.8 (39.0-49.0) % MCV 91.1 (84.0-98.0) fL MCH 30.8 (28.2-33.3) pg MCHC 33.8 (31.7-36.0) g/dL RDW 14.0 (11.2-14.1) % Plt Count 198 D (150-350) K/uL Neut % (Auto) 72.6 (45.0-80.0) % Lymph % (Auto) 12.3 (10.0-50.0) % [place] % (Auto) 14.9 H (2.0-14.0) % Eos % (Auto) 0.0 (0.0-5.0) % Baso % (Auto) 0.2 (0.0-2.0) % Neut # (Auto) 4.08 (1.40-7.00) K/uL Lymph # (Auto) 0.69 (0.50-3.50) K/uL [place] # (Auto) 0.84 (0.00-1.00) K/uL Eos # (Auto) 0.00 (0.00-0.50) K/uL Baso # (Auto) 0.01 (0.00-0.20) K/uL Sodium 135 L (136-145) mmol/L Potassium 3.2 L (3.5-5.1) mmol/L Chloride 97 L (98-107) mmol/L Carbon Dioxide 25.9 (21.0-32.0) mmol/L BUN 21 H (7-18) mg/dL Creatinine 1.18 H (0.51-1.17) mg/dL Est Cr Clr Drug Dosing 55.84 mL/min Estimated GFR (MDRD) 60 mL/min Glucose 154 H (74-106) mg/dL Calcium 8.5 (8.5-10.1) mg/dL Total Bilirubin 0.5 (0.2-1.0) mg/dL AST 36 (15-37) U/L ALT 61 (12-78) U/L Alkaline Phosphatase 60 (46-116) IU/L Total Protein 7.4 (6.4-8.2) g/dL Albumin 3.1 L (3.4-5.0) g/dL Meds: Medications Generic Name Dose Route Start Last Admin Trade Name Jalil PRN Reason Stop Dose Admin Potassium Chloride/Sodium Chloride 1,000 mls @ 100 mls/hr 03/23/20 17:00 Normal Saline With 20 Meq Kcl IV ASDIRECTED [facility] - Radiology Interpretation Free Text/Narrative:: Chest x-ray shows no obvious infiltrates. No free air. - Re-Assessments/Exams Free Text/Narrative Re-Assessment/Exam: 03/23/20 17:02 CBC is unremarkable. He is found be mildly hypokalemic and hyponatremic. Will admit to the floor for IV fluids replacement of sodium and potassium. We will start him presumptively on Rocephin as well. Departure - Departure Time of Disposition: 17:03 Disposition: Admitted As Inpatient 68 Condition: Fair Clinical Impression: Weakness, Hypokalemia, Hyponatremia - Discharge Information Forms: ED Department Discharge Additional Instructions: Admit for replacement of his sodium and potassium and will start IV antibiotics as well. Sepsis Event Note (ED) - Evaluation Sepsis Screening Result: Possible Sepsis Risk - Focused Exam Vital Signs: Vital Signs Temp Pulse Resp BP Pulse Ox 03/23/20 15:51 93 20 180/65 H 95 03/23/20 15:35 37.9 C 101 H 20 187/72 H 96 - Problem List & Annotations (1) Hypokalemia SNOMED Code(s): 38223184 Code(s): E87.6 - HYPOKALEMIA Status: Acute Current Visit: Yes (2) Hyponatremia SNOMED Code(s): 40820177 Code(s): E87.1 - HYPO-OSMOLALITY AND HYPONATREMIA Status: Acute Current Visit: Yes (3) Weakness SNOMED Code(s): 96798951 Code(s): R53.1 - WEAKNESS Status: Acute Current Visit: Yes - My Orders Last 24 Hours: My Active Orders 03/23/20 16:03 Chest 2V [CR] Stat UA W/MACHO RFLX IF INDICATED [URIN] Stat 03/23/20 16:04 CORONAVIRUS COVID-19 SANDRA [[facility]LE[facility]] Urgent 03/23/20 16:42 CXR [Chest 1V Frontal] [CR] Stat 03/23/20 16:57 Admission Status [Patient Status] [ADT] Routine 03/23/20 17:00 NS + KCl 20mEq/L [Normal Saline with 20 mEq KCl] 1,000 ml IV ASDIRECTED - Assessment/Plan Last 24 Hours: My Active Orders 03/23/20 16:03 Chest 2V [CR] Stat UA W/MACHO RFLX IF INDICATED [URIN] Stat 03/23/20 16:04 CORONAVIRUS COVID-19 SANDRA [[facility]] Urgent 03/23/20 16:42 CXR [Chest 1V Frontal] [CR] Stat 03/23/20 16:57 Admission Status [Patient Status] [ADT] Routine 03/23/20 17:00 NS + KCl 20mEq/L [Normal Saline with 20 mEq KCl] 1,000 ml IV ASDIRECTED Plan: Admit for replacement of his sodium and potassium and will start IV antibiotics as well.
[2020-03-23] MEDS: NS + KCl 20mEq/L 1,000 ML IV SCH (17:05)
[2020-03-23] MEDS ORDERED: Aluminum Hydroxide/Magnesium Hydroxide/Simethicone Susp 30 ML Cup PO PRN (17:12)
[2020-03-23] MEDS ORDERED: Magnesium Hydroxide 400 MG/5 ML Susp 30 ML Cup PO PRN (17:12)
[2020-03-23] MEDS ORDERED: Cyclobenzaprine 10 MG Tab PO PRN (17:17)
[2020-03-23] MEDS ORDERED: PRAMOXINE HCL TP PRN (17:17)
[2020-03-23] MEDS ORDERED: cefTRIAXone 1 GM in Sodium Chloride 0.9% 100 ML IV SCH (17:30)
[2020-03-23] MEDS: Atenolol 25 MG Tab PO SCH (18:24)
[2020-03-23] MEDS: amLODIPine 5 MG Tab PO SCH (19:30)
[2020-03-23] MEDS: Acetaminophen 325 MG Tab PO PRN (23:48)
[2020-03-24] MEDS: NS + KCl 20mEq/L 1,000 ML IV SCH (04:23)
[2020-03-24 08:08] LABS: CHLORIDE,CL 101 mmol/L (98-107); SODIUM,NA 138 mmol/L (136-145)
[2020-03-24] MEDS: Atenolol 25 MG Tab PO SCH ×2 (08:34→17:21)
[2020-03-24] MEDS: Omeprazole 20 MG Cap.CR PO SCH (08:34)
[2020-03-24] MEDS: Calcium Carbonate 750 MG Tab.Chew PO SCH (08:35)
[2020-03-24] MEDS: Aspirin 81 MG Tab.EC PO SCH (08:35)
[2020-03-24] MEDS: Finasteride 5 MG Tab PO SCH (08:35)
[2020-03-24] MEDS: Cholecalciferol (Vitamin D3) 10 MCG Tab PO SCH (08:35)
[2020-03-24] MEDS: Ascorbic Acid 500 MG Tab PO SCH (08:35)
[2020-03-24] MEDS: atorvaSTATin 40 MG Tab PO SCH (08:35)
[2020-03-24] MEDS ORDERED: Lactated Ringers 1,000 ML IV ONE (09:57)
[2020-03-24] MEDS ORDERED: Ondansetron 4 MG/2 ML SDV IVPUSH PRN (10:00)
[2020-03-24] MEDS ORDERED: Famotidine 20 MG/2 ML SDV IVPUSH SCH (10:00)
[2020-03-24] MEDS ORDERED: Iopamidol 755 Mg/ML 100 ML Bottle IVPUSH ONE (10:11)
[2020-03-24] MEDS: Multivitamins with Iron and Minerals Tab.Chew PO SCH (10:48)
[2020-03-24] MEDS: Fluticasone Propionate Nasal Spray 16 GM Bottle NASBOTH SCH (11:11)
--- NOTE | 2020-03-24 11:19 | PCM.PN ---
- General Info Date of Service: 03/24/20 Admission Dx/Problem (Free Text): 1. Generalized weakness 2. Fever 3. Urinary incontinence Functional Status: Reports: Pain Controlled, Tolerating Diet, Ambulating, Urinating, Incentive Spirometry. Denies: New Symptoms Pain Score: 0 - Review of Systems General: Reports: Fever (39.5 yesterday evening), Weakness (Improving very slowly), Chills, Night Sweats. Denies: Fatigue, Malaise, Appetite (Adequate) HEENT: Reports: No Symptoms. Denies: Dysphasia, Ear Pain, Eye Pain, Headaches, Post Nasal Drip, Sinus Congestion, Sore Throat, Rhinitis, Visual Changes Pulmonary: Reports: No Symptoms. Denies: Shortness of Breath, Pleuritic Chest Pain, Cough, Sputum, Hemoptysis, Wheezing Cardiovascular: Reports: No Symptoms. Denies: Chest Pain, Palpitations, Dyspnea on Exertion, Orthopnea, PND, Edema, Lightheadedness Gastrointestinal: Reports: Nausea, Vomiting (One large episode of emesis after physical examination today). Denies: Abdominal Pain, Constipation (Normal bowel movement earlier today), Decreased Appetite, Diarrhea, Difficulty Swallowing, Flatus, Hematochezia, Melena Genitourinary: Reports: Incontinence (Improving/resolved). Denies: Dysuria, Frequency, Burning, Pain, Urgency, Hematuria, Retention, Flank Pain Musculoskeletal: Reports: No Symptoms. Denies: Neck Pain, Shoulder Pain, Arm Pain, Back Pain, Leg Pain Skin: Reports: No Symptoms. Denies: Diaphoresis, Bruising, Rash Neurological: Reports: Difficulty Walking (Secondary to weakness), Weakness (As above). Denies: Confusion, Dizziness, Numbness, Paresthesia, Tremors, Trouble Speaking, Gait Disturbance Psychiatric: Reports: No Symptoms. Denies: Confusion, Depression, Anxiety, Agitation, Cravings, Hallucinations - Patient Data Vitals - Most Recent: Last Vital Signs Temp 36.6 C 03/24/20 08:00 Pulse 85 03/24/20 08:34 Resp 16 03/24/20 08:00 BP 113/56 L 03/24/20 08:34 Pulse Ox 93 L 03/24/20 08:00 Vital Signs - 24 hr 03/23/20 03/23/20 03/23/20 15:35 15:51 17:08 Temperature [ Oral] Temperature [ 37.9 C Tympanic] Pulse, Peripheral Pulse, 101 H 93 93 Peripheral [ Left Pulse Oximetry] Respiratory 20 20 20 Rate Blood Pressure Blood Pressure [Left Upper Arm ] Blood Pressure 187/72 H 180/65 H 180/65 H [Right Upper Arm] O2 Sat by Pulse 96 95 95 Oximetry 03/23/20 03/23/20 03/23/20 18:24 19:24 19:30 Temperature [ Oral] Temperature [ 38.0 C Tympanic] Pulse, 93 Peripheral Pulse, 90 Peripheral [ Left Pulse Oximetry] Respiratory 18 Rate Blood Pressure 180/65 H 114/57 L Blood Pressure 114/57 L [Left Upper Arm ] Blood Pressure [Right Upper Arm] O2 Sat by Pulse 96 Oximetry 03/23/20 03/24/20 03/24/20 23:45 04:00 08:00 Temperature [ 39.5 C H 37.0 C 36.6 C Oral] Temperature [ Tympanic] Pulse, Peripheral Pulse, 90 73 85 Peripheral [ Left Pulse Oximetry] Respiratory 16 18 16 Rate Blood Pressure Blood Pressure 142/56 H 113/56 L [Left Upper Arm ] Blood Pressure 157/93 H [Right Upper Arm] O2 Sat by Pulse 92 L 96 93 L Oximetry 03/24/20 03/24/20 08:34 11:35 Temperature [ Oral] Temperature [ 37.1 C Tympanic] Pulse, 85 Peripheral Pulse, 83 Peripheral [ Left Pulse Oximetry] Respiratory 17 Rate Blood Pressure 113/56 L Blood Pressure [Left Upper Arm ] Blood Pressure 147/62 H [Right Upper Arm] O2 Sat by Pulse 95 Oximetry Weight - Most Recent: 97.613 kg I&O - Last 24 Hours: Intake & Output 03/23/20 03/24/20 03/24/20 22:59 06:59 14:59 Intake Total 480 1450 Output Total 100 Balance 380 1450 Imaging Impressions - Last 24 Hours: CTA of the chest using PE protocol is pending. Er Rn chest x-ray PA and lateral films does not show any acute infiltration, etc. Chest x-ray, portable, report on 03/23/2020 shows no evidence of pulmonary infiltrates, CHF, pneumothorax, etc. Lab Results Last 24 Hours: Laboratory Results - last 24 hr 03/23/20 03/23/20 03/23/20 Range/Units 16:20 16:20 16:20 WBC 5.6 (4.0-10.2) K/uL RBC 4.48 (4.33-5.41) M/uL Hgb 13.8 D (13.1-16.8) g/dL Hct 40.8 (39.0-49.0) % MCV 91.1 (84.0-98.0) fL MCH 30.8 (28.2-33.3) pg MCHC 33.8 (31.7-36.0) g/dL RDW 14.0 (11.2-14.1) % Plt Count 198 D (150-350) K/uL Neut % (Auto) 72.6 (45.0-80.0) % Lymph % (Auto) 12.3 (10.0-50.0) % Reagan % (Auto) 14.9 H (2.0-14.0) % Eos % (Auto) 0.0 (0.0-5.0) % Baso % (Auto) 0.2 (0.0-2.0) % Neut # (Auto) 4.08 (1.40-7.00) K/uL Lymph # (Auto) 0.69 (0.50-3.50) K/uL Reagan # (Auto) 0.84 (0.00-1.00) K/uL Eos # (Auto) 0.00 (0.00-0.50) K/uL Baso # (Auto) 0.01 (0.00-0.20) K/uL D-Dimer, Quantitative (0-400) ng/mL Sodium 135 L (136-145) mmol/L Potassium 3.2 L (3.5-5.1) mmol/L Chloride 97 L (98-107) mmol/L Carbon Dioxide 25.9 (21.0-32.0) mmol/L BUN 21 H (7-18) mg/dL Creatinine 1.18 H (0.51-1.17) mg/dL Est Cr Clr Drug Dosing 55.84 mL/min Estimated GFR (MDRD) 60 mL/min Glucose 154 H (74-106) mg/dL Lactic Acid (0.4-2.0) mmol/L Calcium 8.5 (8.5-10.1) mg/dL Total Bilirubin 0.5 (0.2-1.0) mg/dL AST 36 (15-37) U/L ALT 61 (12-78) U/L Alkaline Phosphatase 60 (46-116) IU/L Creatine Kinase (26-308) U/L Creatine Kinase Index (0.0-2.5) % CK-MB (CK-2) (0.00-3.60) ng/mL Troponin I (0.000-0.056) ng/mL NT-Pro-B Natriuret Pep (0-125) pg/mL Total Protein 7.4 (6.4-8.2) g/dL Albumin 3.1 L (3.4-5.0) g/dL Specimen Type Urine Color Urine Appearance Urine pH (5.0-9.0) Ur Specific [place] (1.005-1.030) Urine Protein (NEGATIVE) mg/dL Urine Glucose (UA) (NEGATIVE) mg/dL Urine Ketones (NEGATIVE) mg/dL Urine Occult Blood (NEGATIVE) Urine Nitrite (NEGATIVE) Urine Bilirubin (NEGATIVE) Urine Urobilinogen (0.2-1.0) E.U./dL Ur Leukocyte Esterase (NEGATIVE) Urine RBC /HPF Urine WBC /HPF Ur Epithelial Cells /LPF Amorphous Sediment (0/HPF) /HPF SARS-CoV-2 RNA (SANDRA) Positive H (NEGATIVE) 03/23/20 03/24/20 03/24/20 Range/Units 21:00 07:35 07:35 WBC 6.1 (4.0-10.2) K/uL RBC 4.81 (4.33-5.41) M/uL Hgb 14.6 (13.1-16.8) g/dL Hct 44.2 (39.0-49.0) % MCV 91.9 (84.0-98.0) fL MCH 30.4 (28.2-33.3) pg MCHC 33.0 (31.7-36.0) g/dL RDW 14.2 H (11.2-14.1) % Plt Count 173 (150-350) K/uL Neut % (Auto) 64.1 (45.0-80.0) % Lymph % (Auto) 18.6 (10.0-50.0) % Reagan % (Auto) 16.8 H (2.0-14.0) % Eos % (Auto) 0.0 (0.0-5.0) % Baso % (Auto) 0.5 (0.0-2.0) % Neut # (Auto) 3.94 (1.40-7.00) K/uL Lymph # (Auto) 1.14 (0.50-3.50) K/uL Reagan # (Auto) 1.03 H (0.00-1.00) K/uL Eos # (Auto) 0.00 (0.00-0.50) K/uL Baso # (Auto) 0.03 (0.00-0.20) K/uL D-Dimer, Quantitative (0-400) ng/mL Sodium 138 (136-145) mmol/L Potassium 3.8 (3.5-5.1) mmol/L Chloride 101 (98-107) mmol/L Carbon Dioxide 26.7 (21.0-32.0) mmol/L BUN 21 H (7-18) mg/dL Creatinine 1.00 (0.51-1.17) mg/dL Est Cr Clr Drug Dosing 65.89 mL/min Estimated GFR (MDRD) > 60 mL/min Glucose 100 (74-106) mg/dL Lactic Acid (0.4-2.0) mmol/L Calcium 8.2 L (8.5-10.1) mg/dL Total Bilirubin (0.2-1.0) mg/dL AST (15-37) U/L ALT (12-78) U/L Alkaline Phosphatase (46-116) IU/L Creatine Kinase (26-308) U/L Creatine Kinase Index (0.0-2.5) % CK-MB (CK-2) (0.00-3.60) ng/mL Troponin I (0.000-0.056) ng/mL NT-Pro-B Natriuret Pep (0-125) pg/mL Total Protein (6.4-8.2) g/dL Albumin (3.4-5.0) g/dL Specimen Type Urinvoid Urine Color Yellow Urine Appearance Cloudy Urine pH 5.5 (5.0-9.0) Ur Specific [place] 1.020 (1.005-1.030) Urine Protein Trace H (NEGATIVE) mg/dL Urine Glucose (UA) Negative (NEGATIVE) mg/dL Urine Ketones Negative (NEGATIVE) mg/dL Urine Occult Blood Trace-lysed H (NEGATIVE) Urine Nitrite Negative (NEGATIVE) Urine Bilirubin Negative (NEGATIVE) Urine Urobilinogen 0.2 (0.2-1.0) E.U./dL Ur Leukocyte Esterase Negative (NEGATIVE) Urine RBC 0-5 /HPF Urine WBC Not seen /HPF Ur Epithelial Cells Rare /LPF Amorphous Sediment Moderate H (0/HPF) /HPF SARS-CoV-2 RNA (SANDRA) (NEGATIVE) 03/24/20 03/24/20 03/24/20 Range/Units 07:35 07:35 07:35 WBC (4.0-10.2) K/uL RBC (4.33-5.41) M/uL Hgb (13.1-16.8) g/dL Hct (39.0-49.0) % MCV (84.0-98.0) fL MCH (28.2-33.3) pg MCHC (31.7-36.0) g/dL RDW (11.2-14.1) % Plt Count (150-350) K/uL Neut % (Auto) (45.0-80.0) % Lymph % (Auto) (10.0-50.0) % Reagan % (Auto) (2.0-14.0) % Eos % (Auto) (0.0-5.0) % Baso % (Auto) (0.0-2.0) % Neut # (Auto) (1.40-7.00) K/uL Lymph # (Auto) (0.50-3.50) K/uL Reagan # (Auto) (0.00-1.00) K/uL Eos # (Auto) (0.00-0.50) K/uL Baso # (Auto) (0.00-0.20) K/uL D-Dimer, Quantitative 1880 H (0-400) ng/mL Sodium (136-145) mmol/L Potassium (3.5-5.1) mmol/L Chloride (98-107) mmol/L Carbon Dioxide (21.0-32.0) mmol/L BUN (7-18) mg/dL Creatinine (0.51-1.17) mg/dL Est Cr Clr Drug Dosing mL/min Estimated GFR (MDRD) mL/min Glucose (74-106) mg/dL Lactic Acid 2.3 H (0.4-2.0) mmol/L Calcium (8.5-10.1) mg/dL Total Bilirubin (0.2-1.0) mg/dL AST (15-37) U/L ALT (12-78) U/L Alkaline Phosphatase (46-116) IU/L Creatine Kinase 278 (26-308) U/L Creatine Kinase Index 0.5 (0.0-2.5) % CK-MB (CK-2) 1.40 (0.00-3.60) ng/mL Troponin I 0.023 (0.000-0.056) ng/mL NT-Pro-B Natriuret Pep (0-125) pg/mL Total Protein (6.4-8.2) g/dL Albumin (3.4-5.0) g/dL Specimen Type Urine Color Urine Appearance Urine pH (5.0-9.0) Ur Specific [place] (1.005-1.030) Urine Protein (NEGATIVE) mg/dL Urine Glucose (UA) (NEGATIVE) mg/dL Urine Ketones (NEGATIVE) mg/dL Urine Occult Blood (NEGATIVE) Urine Nitrite (NEGATIVE) Urine Bilirubin (NEGATIVE) Urine Urobilinogen (0.2-1.0) E.U./dL Ur Leukocyte Esterase (NEGATIVE) Urine RBC /HPF Urine WBC /HPF Ur Epithelial Cells /LPF Amorphous Sediment (0/HPF) /HPF SARS-CoV-2 RNA (SANDRA) (NEGATIVE) 03/24/20 Range/Units 07:35 WBC (4.0-10.2) K/uL RBC (4.33-5.41) M/uL Hgb (13.1-16.8) g/dL Hct (39.0-49.0) % MCV (84.0-98.0) fL MCH (28.2-33.3) pg MCHC (31.7-36.0) g/dL RDW (11.2-14.1) % Plt Count (150-350) K/uL Neut % (Auto) (45.0-80.0) % Lymph % (Auto) (10.0-50.0) % Reagan % (Auto) (2.0-14.0) % Eos % (Auto) (0.0-5.0) % Baso % (Auto) (0.0-2.0) % Neut # (Auto) (1.40-7.00) K/uL Lymph # (Auto) (0.50-3.50) K/uL Reagan # (Auto) (0.00-1.00) K/uL Eos # (Auto) (0.00-0.50) K/uL Baso # (Auto) (0.00-0.20) K/uL D-Dimer, Quantitative (0-400) ng/mL Sodium (136-145) mmol/L Potassium (3.5-5.1) mmol/L Chloride (98-107) mmol/L Carbon Dioxide (21.0-32.0) mmol/L BUN (7-18) mg/dL Creatinine (0.51-1.17) mg/dL Est Cr Clr Drug Dosing mL/min Estimated GFR (MDRD) mL/min Glucose (74-106) mg/dL Lactic Acid (0.4-2.0) mmol/L Calcium (8.5-10.1) mg/dL Total Bilirubin (0.2-1.0) mg/dL AST (15-37) U/L ALT (12-78) U/L Alkaline Phosphatase (46-116) IU/L Creatine Kinase (26-308) U/L Creatine Kinase Index (0.0-2.5) % CK-MB (CK-2) (0.00-3.60) ng/mL Troponin I (0.000-0.056) ng/mL NT-Pro-B Natriuret Pep 699 H (0-125) pg/mL Total Protein (6.4-8.2) g/dL Albumin (3.4-5.0) g/dL Specimen Type Urine Color Urine Appearance Urine pH (5.0-9.0) Ur Specific [place] (1.005-1.030) Urine Protein (NEGATIVE) mg/dL Urine Glucose (UA) (NEGATIVE) mg/dL Urine Ketones (NEGATIVE) mg/dL Urine Occult Blood (NEGATIVE) Urine Nitrite (NEGATIVE) Urine Bilirubin (NEGATIVE) Urine Urobilinogen (0.2-1.0) E.U./dL Ur Leukocyte Esterase (NEGATIVE) Urine RBC /HPF Urine WBC /HPF Ur Epithelial Cells /LPF Amorphous Sediment (0/HPF) /HPF SARS-CoV-2 RNA (SANDRA) (NEGATIVE) Med Orders - Current: Current Medications Acetaminophen (Tylenol) 650 mg PO Q4H PRN PRN Reason: analgesia/fever Last Admin: 03/23/20 23:48 Dose: 650 mg Documented by: Al Hydroxide/Mg Hydroxide (Mag-Al Plus) 30 ml PO Q4H PRN PRN Reason: Dyspepsia Amlodipine Besylate (Norvasc) 10 mg PO BEDTIME [facility] Last Admin: 03/23/20 19:30 Dose: 10 mg Documented by: Ascorbic Acid (Vitamin C) 1,000 mg PO DAILY [facility] Last Admin: 03/24/20 08:35 Dose: 1,000 mg Documented by: Aspirin (Halfprin) 81 mg PO QAM [facility] Last Admin: 03/24/20 08:35 Dose: 81 mg Documented by: Atenolol (Tenormin) 25 mg PO BID [facility] Last Admin: 03/24/20 08:34 Dose: 25 mg Documented by: Atorvastatin Calcium (Lipitor) 80 mg PO DAILY [facility] Last Admin: 03/24/20 08:35 Dose: 80 mg Documented by: Calcium Carbonate/Glycine (Tums Extra Strength) 1,500 mg PO DAILY [facility] Last Admin: 03/24/20 08:35 Dose: 1,500 mg Documented by: Cholecalciferol (Vitamin D3) 20 mcg PO DAILY [facility] Last Admin: 03/24/20 08:35 Dose: 20 mcg Documented by: Cyclobenzaprine HCl (Flexeril) 10 mg PO Q8HR PRN PRN Reason: Other Doxycycline Monohydrate (Doxycycline Monohydrate) 100 mg PO BID [facility] Enoxaparin Sodium (Lovenox) 100 mg SUBCUT Q24H [facility] Famotidine (Pepcid) 20 mg IVPUSH Q12H [facility] Finasteride (Proscar) 5 mg PO DAILY [facility] Last Admin: 03/24/20 08:35 Dose: 5 mg Documented by: Fluticasone Propionate (Flonase) 0 gm NASBOTH DAILY [facility] Last Admin: 03/24/20 11:11 Dose: 2 inhaler Documented by: Ceftriaxone Sodium 1 gm/ (Sodium Chloride) 100 mls @ 200 mls/hr IV Q12H [facility] Magnesium Hydroxide (Milk Of Magnesia) 30 ml PO BID PRN PRN Reason: Constipation Multivitamins/Folic Acid/Vitamin C (Cerovite Jr) 1 each PO DAILY [facility] Last Admin: 03/24/20 10:48 Dose: Not Given Documented by: Non-Formulary Medication (Pramoxine Hcl [Prax]) 1 applic TP ASDIRECTED PRN PRN Reason: Itching Omeprazole (Omeprazole) 20 mg PO DAILY [facility] Last Admin: 03/24/20 08:34 Dose: 20 mg Documented by: Ondansetron HCl (Zofran) 4 mg IVPUSH Q6H PRN PRN Reason: Nausea/Vomiting Sodium Chloride (Saline Flush) 10 ml FLUSH ASDIRECTED PRN PRN Reason: Other Discontinued Medications Potassium Chloride/Sodium Chloride (Normal Saline With 20 Meq Kcl) 1,000 mls @ 100 mls/hr IV ASDIRECTED [facility] Last Admin: 03/24/20 04:23 Dose: 100 mls/hr Documented by: Ceftriaxone Sodium 1 gm/ (Sodium Chloride) 100 mls @ 200 mls/hr IV Q24H [facility] Last Admin: 03/23/20 18:23 Dose: 200 mls/hr Documented by: Lactated Ringer's (Ringers, Lactated) 1,000 mls @ 999 mls/hr IV .BOLUS ONE Stop: 03/24/20 10:57 Iopamidol (Isovue-370 (76%)) 100 ml IVPUSH ONETIME ONE Stop: 03/24/20 10:12 Last Admin: 03/24/20 10:53 Dose: 100 ml Documented by: - Exam Quality Assessment: DVT Prophylaxis (Subcu Lovenox). No: Supplemental Oxygen, Central Line/PICC, Urine Catheter, Skin Breakdown, Restraints General: Alert, Oriented, Cooperative, No Acute Distress HEENT: Pupils Equal, Pupils Reactive, EOMI, Mucous Membr. Moist/[place]. No: Scleral Icterus Neck: Supple, Trachea Midline, No JVD, No Thyromegaly, Carotid Bruit (Mild bilateral carotid bruits). No: Lymphadenopathy Lungs: Clear to Auscultation, Normal Respiratory Effort. No: Rhonchi, Wheezing Cardiovascular: Regular Rate, Regular Rhythm, No Murmurs. No: Gallops, Rubs GI/Abdominal Exam: Normal Bowel Sounds, Soft, Non-Tender, No Organomegaly, No Distention, No Abnormal Bruit, No Mass. No: Guarding (Male) Exam: Deferred Back Exam: Normal Inspection, Full Range of Motion. No: CVA Tenderness (L), CVA Tenderness (R), Muscle Spasm Extremities: Normal Inspection, Normal Range of Motion, Non-Tender, No Pedal Edema, Normal Capillary Refill. No: Ildefonso's Sign Peripheral Pulses: 2+: Radial (L), Radial (R), Dorsalis Pedis (L), Dorsalis Pedis (R) Skin: Warm, Dry, Intact. No: Rash, Ecchymosis Neurological: No New Focal Deficit, Other (No clinical orthostasis) Psy/Mental Status: Alert, Normal Affect, Normal Mood. No: Agitated, Hallucinations, Withdrawal Symptoms #1 Interpretation EKG Date: 03/24/20 Time: 10:50 Rhythm: NSR Rate (Beats/Min): 76 Drake: Normal (Neutral versus left cardiac axis) P-Wave: Present QRS: RBBB (0.15 seconds represent incomplete right bundle branch block with T wave inversion in lead V1) ST-T: Normal QT: Normal DE/PQ Interval: 0.19 seconds Comparison: NA - No Prior EKG (No recent EKG for comparison) EKG Interpretation Comments: 1. No acute ischemic changes 2. Complete right bundle branch block Sepsis Event Note - Evaluation Sepsis Screening Result: No Definite Risk - Focused Exam Vital Signs: Vital Signs Temp Pulse Pulse Resp BP BP BP 03/24/20 08:34 85 113/56 L 03/24/20 08:00 36.6 C 85 16 113/56 L 03/24/20 04:00 37.0 C 73 18 142/56 H 03/23/20 23:45 39.5 C H 90 16 157/93 H Pulse Ox 03/24/20 08:34 03/24/20 08:00 93 L 03/24/20 04:00 96 03/23/20 23:45 92 L - Problem List & Annotations (1) COVID-19 SNOMED Code(s): 095851571 Code(s): U07.1 - COVID-19 Status: Acute Priority: High Current Visit: Yes Onset Date: ~03/23/20 Annotation/Comment:: COVID-19 rapid screen positive today. Note the patient was started on IV Rocephin at admission with no direct clinical evidence of sepsis despite patient's fever and mild lactic acid elevation this morning. Initiate standard sepsis protocol with patient previously started on IV fluids, however an initial 1 L IV bolus of lactated Ringer's was given. Hold further IV fluids for now secondary to his COVID-19 infection with isolation precautions initiated on admission. Additional subcutaneous Lovenox at the VTE dose was initiated today with CTA of the chest using PE protocol conducted this morning. Venous Doppler studies of the lower extremities bilaterally will be conducted later today. Additional doxycycline therapy secondary to his COVID-19 with consideration of ANJEL inhibitor therapy. IV Pepcid therapy was also initiated. Patient does not need supplemental O2 and is not a candidate for remdesivir, etc. at this time. (2) D-dimer, elevated SNOMED Code(s): 165707381 Code(s): R79.89 - OTHER SPECIFIED ABNORMAL FINDINGS OF BLOOD CHEMISTRY Status: Acute Priority: High Current Visit: Yes Onset Date: 03/24/20 Annotation/Comment:: As above. (3) Elevated lactic acid level SNOMED Code(s): 9042880 Code(s): R79.89 - OTHER SPECIFIED ABNORMAL FINDINGS OF BLOOD CHEMISTRY Status: Acute Priority: High Current Visit: Yes Onset Date: 03/24/20 Annotation/Comment:: As above (4) Complete right bundle branch block (RBBB) SNOMED Code(s): 306844403 Code(s): I45.10 - UNSPECIFIED RIGHT BUNDLE-BRANCH BLOCK Status: Acute Priority: Medium Current Visit: Yes Onset Date: 03/24/20 Annotation/C omment:: No chest pain or anginal type symptoms despite mild change in his troponin I likely secondary to mild fluid overload. No recent EKG for comparison. Repeat blood work, chest x-ray and EKG in the a.m.. (5) Osteoarthritis SNOMED Code(s): 783978734 Code(s): M19.90 - UNSPECIFIED OSTEOARTHRITIS, UNSPECIFIED SITE Status: Chronic Priority: Medium Current Visit: Yes Qualifiers: Osteoarthritis location: multiple joints Osteoarthritis type: primary Qualified Code(s): M89.49 - Other hypertrophic osteoarthropathy, multiple sites Annotation/Comment:: Stable by history despite his current COVID-19 infection. (6) Hypertension SNOMED Code(s): 96031186 Code(s): I10 - ESSENTIAL (PRIMARY) HYPERTENSION Status: Chronic Priority: Medium Current Visit: Yes Qualifiers: Hypertension type: essential hypertension Qualified Code(s): I10 - Essential (primary) hypertension Annotation/Comment:: Blood pressure was verbal during initial phases of hospitalization, however overall under good control. Consider ANJEL inhibitor therapy in light of patient's COVID-19 infection, etc. (7) COPD (chronic obstructive pulmonary disease) SNOMED Code(s): 72509192 Code(s): J44.9 - CHRONIC OBSTRUCTIVE PULMONARY DISEASE, UNSPECIFIED Status: Chronic Current Visit: Yes Qualifiers: COPD type: emphysema Emphysema type: panlobular Qualified Code(s): J43.1 - Panlobular emphysema Annotation/Comment:: Fever as above with no significant bronchitic type symptoms or evidence of pneumonia by chest x-ray on admission. Incentive spirometry was initiated on 03/24, however, with additional inhaler therapy depending on his clinical course. (8) Peptic reflux disease SNOMED Code(s): 702342927 Code(s): K21.9 - GASTRO-ESOPHAGEAL REFLUX DISEASE WITHOUT ESOPHAGITIS Status: Chronic Priority: Medium Current Visit: Yes Annotation/Comment:: Stable by history. IV Pepcid initiated on 03/24 as above. (9) Weakness SNOMED Code(s): 87653892 Code(s): R53.1 - WEAKNESS Status: Acute Priority: High Current Visit: Yes Onset Date: ~03/21/20 Annotation/Comment:: Improving slowly. Likely secondary to COVID-19 infection. (10) Hypocalcemia SNOMED Code(s): 8282205 Code(s): E83.51 - HYPOCALCEMIA Status: Acute Priority: Medium Current Visit: Yes Onset Date: 03/24/20 Annotation/Comment:: Normal on admission. Observe for now. (11) Hypokalemia SNOMED Code(s): 68030584 Code(s): E87.6 - HYPOKALEMIA Status: Acute Priority: Medium Current Visit: Yes Onset Date: 03/23/20 Annotation/Comment:: Resolved on 03/24 after IV fluids given on admission. Continue to observe for now. - Problem List Review Problem List Initiated/Reviewed/Updated: Yes - My Orders Last 24 Hours: My Active Orders 03/24/20 08:00 cefTRIAXone [Rocephin] 1 gm Sodium Chloride 0.9% [Normal Saline] 100 ml IV Q12H 03/24/20 08:29 CULTURE SPUTUM + SMEAR [RM] Routine 03/24/20 08:30 Doxycycline Monohydrate 100 mg PO BID 03/24/20 08:46 REFLEX LACTIC ACID YES OR NO [CHEM] Routine 03/24/20 09:54 EKG Documentation Completion [RC] ASDIRECTED 03/24/20 09:56 Chest PE [Ang Chest] [CT] Stat Venous Doppler Lwr Ext Bi [US] Urgent 03/24/20 10:00 Famotidine [Pepcid] 20 mg IVPUSH Q12H Ondansetron [Zofran] 4 mg IVPUSH Q6H PRN 03/24/20 11:16 Enoxaparin [Lovenox] 100 mg SUBCUT Q24H 03/24/20 12:00 INR,PT,PROTHROMBIN TIME [COAG] Stat LACTATE SEPSIS W/ REFLEX [CHEM] Stat PTT,PARTIAL THROMBOPLSTIN TIME [COAG] Stat 03/25/20 05:11 EKG Documentation Completion [RC] ASDIRECTED CBC WITH AUTO DIFF [HEME] Routine CK W CKMB [CHEM] Routine COMPREHENSIVE METABOLIC PN,CMP [CHEM] Routine D-DIMER QUANTITATIVE [COAG] Routine INR,PT,PROTHROMBIN TIME [COAG] Routine LACTATE SEPSIS W/ REFLEX [CHEM] Routine PRO B-TYPE NATRIUR PEPT,BNPPRO [CHEM] Routine PTT,PARTIAL THROMBOPLSTIN TIME [COAG] Routine TROPONIN I [CHEM] Routine EKG 12 Lead [EK] Routine - Assessment Assessment:: As above. - Plan Plan:: As above. Extensive precautions were given to the patient, who is in agreement with the treatment plan. The patient will require about 2-3 days of inpatient/acute care secondary to multiple health problems as above. java integration developer physician assumes care in the a.m.
[2020-03-24] MEDS: cefTRIAXone 1 GM in Sodium Chloride 0.9% 100 ML IV SCH ×2 (11:25→19:53)
[2020-03-24] MEDS: Enoxaparin 100 MG/1 ML Syringe SUBCUT SCH (11:26)
[2020-03-24] MEDS: Doxycycline Monohydrate 100 MG Cap PO SCH ×2 (11:36→17:21)
[2020-03-24 12:27] LABS: PTT,PARTIAL THROMBOPLSTIN TIME 32.4 SEC (24.5-32.8)
[2020-03-24] MEDS: amLODIPine 5 MG Tab PO SCH ×2 (19:57→20:00)
[2020-03-24] MEDS: Famotidine 20 MG/2 ML SDV IVPUSH SCH (19:57)
[2020-03-24] MEDS: Acetaminophen 325 MG Tab PO PRN (20:08)
[2020-03-25 07:41] LABS: PTT,PARTIAL THROMBOPLSTIN TIME 34.1 SEC (24.5-32.8)
[2020-03-25 08:05] LABS: CHLORIDE,CL 103 mmol/L (98-107); SODIUM,NA 138 mmol/L (136-145)
[2020-03-25] MEDS: cefTRIAXone 1 GM in Sodium Chloride 0.9% 100 ML IV SCH ×2 (08:30→19:56)
[2020-03-25] MEDS: Fluticasone Propionate Nasal Spray 16 GM Bottle NASBOTH SCH (08:31)
[2020-03-25] MEDS: Sodium Chloride 0.9% 10 ML Syringe FLUSH PRN ×4 (08:31→20:01)
[2020-03-25] MEDS: atorvaSTATin 40 MG Tab PO SCH (08:32)
[2020-03-25] MEDS: Omeprazole 20 MG Cap.CR PO SCH (08:32)
[2020-03-25] MEDS: Cholecalciferol (Vitamin D3) 10 MCG Tab PO SCH (08:33)
[2020-03-25] MEDS: Calcium Carbonate 750 MG Tab.Chew PO SCH (08:33)
[2020-03-25] MEDS: Ascorbic Acid 500 MG Tab PO SCH (08:36)
[2020-03-25] MEDS: Multivitamins with Iron and Minerals Tab.Chew PO SCH (08:36)
[2020-03-25] MEDS: Finasteride 5 MG Tab PO SCH (08:38)
[2020-03-25] MEDS: Doxycycline Monohydrate 100 MG Cap PO SCH ×2 (08:38→17:25)
[2020-03-25] MEDS: Famotidine 20 MG/2 ML SDV IVPUSH SCH ×2 (08:39→20:01)
[2020-03-25] MEDS: Atenolol 25 MG Tab PO SCH ×2 (08:39→17:25)
[2020-03-25] MEDS: Aspirin 81 MG Tab.EC PO SCH (08:39)
[2020-03-25] MEDS: Enoxaparin 100 MG/1 ML Syringe SUBCUT SCH (11:50)
--- NOTE | 2020-03-25 12:53 | PCM.PN ---
- General Info Date of Service: 03/25/20 Admission Dx/Problem (Free Text): Patient admitted for treatment of Covid infection and associated weakness/hypokalemia Subjective Update: Weakness has improved. Still unsteady when walking/feels tired. No increased SOB reported. Functional Status: Reports: Pain Controlled, Tolerating Diet, Ambulating (with assistance), Urinating, Incentive Spirometry. Denies: New Symptoms Pain Score: 0 - Review of Systems General: Reports: Weakness, Fatigue. Denies: Fever, Malaise, Chills, Night Sweats HEENT: Denies: Headaches, Sinus Congestion, Sore Throat, Rhinitis, Visual Changes Pulmonary: Reports: Shortness of Breath (with ambulation), Cough, Sputum. Denies: Pleuritic Chest Pain, Hemoptysis, Wheezing Cardiovascular: Reports: Dyspnea on Exertion. Denies: Chest Pain, Palpitations, Orthopnea, Edema, Lightheadedness Gastrointestinal: Denies: Abdominal Pain, Constipation, Diarrhea, Difficulty Swallowing, Hematochezia, Nausea, Vomiting Genitourinary: Reports: No Symptoms Musculoskeletal: Reports: Other (no acute changes from baseline) Skin: Reports: No Symptoms Neurological: Reports: Weakness (generalized). Denies: Confusion, Dizziness, Headache, Trouble Speaking, Change in Speech Psychiatric: Reports: No Symptoms - Patient Data Vitals - Most Recent: Last Vital Signs Temp 37.3 C 03/25/20 11:52 Pulse 88 03/25/20 11:52 Resp 20 03/25/20 11:52 BP 151/64 H 03/25/20 11:52 Pulse Ox 92 L 03/25/20 11:52 Weight - Most Recent: 98.43 kg I&O - Last 24 Hours: Intake & Output 03/24/20 03/25/20 03/25/20 22:59 06:59 14:59 Intake Total 800 940 Output Total 300 Balance -300 800 940 Lab Results Last 24 Hours: Laboratory Results - last 24 hr 03/25/20 03/25/20 03/25/20 Range/Units 07:15 07:15 07:15 WBC 5.4 (4.0-10.2) K/uL RBC 4.37 (4.33-5.41) M/uL Hgb 13.4 (13.1-16.8) g/dL Hct 40.2 (39.0-49.0) % MCV 92.0 (84.0-98.0) fL MCH 30.7 (28.2-33.3) pg MCHC 33.3 (31.7-36.0) g/dL RDW 14.1 (11.2-14.1) % Plt Count 167 (150-350) K/uL Neut % (Auto) 72.0 (45.0-80.0) % Lymph % (Auto) 17.0 (10.0-50.0) % [place] % (Auto) 10.8 (2.0-14.0) % Eos % (Auto) 0.0 (0.0-5.0) % Baso % (Auto) 0.2 (0.0-2.0) % Neut # (Auto) 3.86 (1.40-7.00) K/uL Lymph # (Auto) 0.91 (0.50-3.50) K/uL [place] # (Auto) 0.58 (0.00-1.00) K/uL Eos # (Auto) 0.00 (0.00-0.50) K/uL Baso # (Auto) 0.01 (0.00-0.20) K/uL PT 9.8 (9.5-12.0) SEC INR 1.0 APTT 34.1 H (24.5-32.8) SEC D-Dimer, Quantitative 2420 H (0-400) ng/mL Sodium (136-145) mmol/L Potassium (3.5-5.1) mmol/L Chloride (98-107) mmol/L Carbon Dioxide (21.0-32.0) mmol/L BUN (7-18) mg/dL Creatinine (0.51-1.17) mg/dL Est Cr Clr Drug Dosing mL/min Estimated GFR (MDRD) mL/min Glucose (74-106) mg/dL Lactic Acid (0.4-2.0) mmol/L Calcium (8.5-10.1) mg/dL Total Bilirubin (0.2-1.0) mg/dL AST (15-37) U/L ALT (12-78) U/L Alkaline Phosphatase (46-116) IU/L Creatine Kinase (26-308) U/L Creatine Kinase Index (0.0-2.5) % CK-MB (CK-2) (0.00-3.60) ng/mL Troponin I (0.000-0.056) ng/mL NT-Pro-B Natriuret Pep (0-125) pg/mL Total Protein (6.4-8.2) g/dL Albumin (3.4-5.0) g/dL 03/25/20 03/25/20 Range/Units 07:15 07:15 WBC (4.0-10.2) K/uL RBC (4.33-5.41) M/uL Hgb (13.1-16.8) g/dL Hct (39.0-49.0) % MCV (84.0-98.0) fL MCH (28.2-33.3) pg MCHC (31.7-36.0) g/dL RDW (11.2-14.1) % Plt Count (150-350) K/uL Neut % (Auto) (45.0-80.0) % Lymph % (Auto) (10.0-50.0) % [place] % (Auto) (2.0-14.0) % Eos % (Auto) (0.0-5.0) % Baso % (Auto) (0.0-2.0) % Neut # (Auto) (1.40-7.00) K/uL Lymph # (Auto) (0.50-3.50) K/uL [place] # (Auto) (0.00-1.00) K/uL Eos # (Auto) (0.00-0.50) K/uL Baso # (Auto) (0.00-0.20) K/uL PT (9.5-12.0) SEC INR APTT (24.5-32.8) SEC D-Dimer, Quantitative (0-400) ng/mL Sodium 138 (136-145) mmol/L Potassium 3.4 L (3.5-5.1) mmol/L Chloride 103 (98-107) mmol/L Carbon Dioxide 27.5 (21.0-32.0) mmol/L BUN 17 (7-18) mg/dL Creatinine 1.00 (0.51-1.17) mg/dL Est Cr Clr Drug Dosing 65.62 mL/min Estimated GFR (MDRD) > 60 mL/min Glucose 103 (74-106) mg/dL Lactic Acid 1.4 (0.4-2.0) mmol/L Calcium 7.8 L (8.5-10.1) mg/dL Total Bilirubin 0.4 (0.2-1.0) mg/dL AST 41 H (15-37) U/L ALT 56 (12-78) U/L Alkaline Phosphatase 51 (46-116) IU/L Creatine Kinase 317 H (26-308) U/L Creatine Kinase Index 0.3 (0.0-2.5) % CK-MB (CK-2) 1.10 (0.00-3.60) ng/mL Troponin I 0.021 (0.000-0.056) ng/mL NT-Pro-B Natriuret Pep 1374 H (0-125) pg/mL Total Protein 6.9 (6.4-8.2) g/dL Albumin 2.7 L (3.4-5.0) g/dL [place] Results Last 24 Hours: Microbiology 03/24/20 00:25 Aerobic Blood Culture - Preliminary Blood - Venous NO GROWTH AFTER 1 DAY Anaerobic Blood Culture - Preliminary NO GROWTH AFTER 1 DAY 03/24/20 00:30 Aerobic Blood Culture - Preliminary Blood - Venous - Lab Draw NO GROWTH AFTER 1 DAY Anaerobic Blood Culture - Preliminary NO GROWTH AFTER 1 DAY Med Orders - Current: Current Medications Acetaminophen (Tylenol) 650 mg PO Q4H PRN PRN Reason: analgesia/fever Last Admin: 03/24/20 20:08 Dose: 650 mg Documented by: Al Hydroxide/Mg Hydroxide (Mag-Al Plus) 30 ml PO Q4H PRN PRN Reason: Dyspepsia Amlodipine Besylate (Norvasc) 10 mg PO BEDTIME [facility] Last Admin: 03/24/20 20:00 Dose: Not Given Documented by: Ascorbic Acid (Vitamin C) 1,000 mg PO DAILY [facility] Last Admin: 03/25/20 08:36 Dose: 1,000 mg Documented by: Aspirin (Halfprin) 81 mg PO QAM [facility] Last Admin: 03/25/20 08:39 Dose: 81 mg Documented by: Atenolol (Tenormin) 25 mg PO BID [facility] Last Admin: 03/25/20 08:39 Dose: 25 mg Documented by: Atorvastatin Calcium (Lipitor) 80 mg PO DAILY [facility] Last Admin: 03/25/20 08:32 Dose: 80 mg Documented by: Calcium Carbonate/Glycine (Tums Extra Strength) 1,500 mg PO DAILY [facility] Last Admin: 03/25/20 08:33 Dose: 1,500 mg Documented by: Cholecalciferol (Vitamin D3) 20 mcg PO DAILY [facility] Last Admin: 03/25/20 08:33 Dose: 20 mcg Documented by: Cyclobenzaprine HCl (Flexeril) 10 mg PO Q8HR PRN PRN Reason: Other Doxycycline Monohydrate (Doxycycline Monohydrate) 100 mg PO BID [facility] Last Admin: 03/25/20 08:38 Dose: 100 mg Documented by: Enoxaparin Sodium (Lovenox) 100 mg SUBCUT Q24H [facility] Last Admin: 03/25/20 11:50 Dose: 100 mg Documented by: Famotidine (Pepcid) 20 mg IVPUSH Q12H [facility] Last Admin: 03/25/20 08:39 Dose: 20 mg Documented by: Finasteride (Proscar) 5 mg PO DAILY [facility] Last Admin: 03/25/20 08:38 Dose: 5 mg Documented by: Fluticasone Propionate (Flonase) 0 gm NASBOTH DAILY [facility] Last Admin: 03/25/20 08:31 Dose: 2 spray Documented by: Ceftriaxone Sodium 1 gm/ (Sodium Chloride) 100 mls @ 200 mls/hr IV Q12H [facility] Last Admin: 03/25/20 08:30 Dose: 200 mls/hr Documented by: Magnesium Hydroxide (Milk Of Magnesia) 30 ml PO BID PRN PRN Reason: Constipation Multivitamins/Folic Acid/Vitamin C (Cerovite Jr) 1 each PO DAILY [facility] Last Admin: 03/25/20 08:36 Dose: 1 each Documented by: Non-Formulary Medication (Pramoxine Hcl [Prax]) 1 applic TP ASDIRECTED PRN PRN Reason: Itching Omeprazole (Omeprazole) 20 mg PO DAILY [facility] Last Admin: 03/25/20 08:32 Dose: 20 mg Documented by: Ondansetron HCl (Zofran) 4 mg IVPUSH Q6H PRN PRN Reason: Nausea/Vomiting Last Admin: 03/24/20 10:17 Dose: 4 mg Documented by: Sodium Chloride (Saline Flush) 10 ml FLUSH ASDIRECTED PRN PRN Reason: Other Last Admin: 03/25/20 08:47 Dose: 10 ml Documented by: Discontinued Medications Famotidine (Pepcid) 20 mg IVPUSH Q12H [facility] Last Admin: 03/24/20 10:19 Dose: 20 mg Documented by: Potassium Chloride/Sodium Chloride (Normal Saline With 20 Meq Kcl) 1,000 mls @ 100 mls/hr IV ASDIRECTED [facility] Last Admin: 03/24/20 04:23 Dose: 100 mls/hr Documented by: Ceftriaxone Sodium 1 gm/ (Sodium Chloride) 100 mls @ 200 mls/hr IV Q24H [facility] Last Admin: 03/23/20 18:23 Dose: 200 mls/hr Documented by: Lactated Ringer's (Ringers, Lactated) 1,000 mls @ 999 mls/hr IV .BOLUS ONE Stop: 03/24/20 10:57 Last Admin: 03/24/20 10:21 Dose: 999 mls/hr Documented by: Iopamidol (Isovue-370 (76%)) 100 ml IVPUSH ONETIME ONE Stop: 03/24/20 10:12 Last Admin: 03/24/20 10:53 Dose: 100 ml Documented by: - Exam General: Alert, Oriented, Cooperative, No Acute Distress HEENT: Pupils Equal, Pupils Reactive, EOMI, Mucous Membr. Moist/Fowler Neck: Supple Lungs: Normal Respiratory Effort, Rhonchi (mild/diffuse). No: Stridor, Wheezing GI/Abdominal Exam: Normal Bowel Sounds, Soft, Non-Tender, No Distention (Male) Exam: Deferred Back Exam: No: CVA Tenderness (L), CVA Tenderness (R), Muscle Spasm, Paraspinal Tenderness, Vertebral Tenderness Extremities: Non-Tender, Normal Capillary Refill Skin: Warm, Dry Neurological: No New Focal Deficit Psy/Mental Status: Alert, Normal Affect, Normal Mood Sepsis Event Note - Evaluation Sepsis Screening Result: No Definite Risk - Focused Exam Vital Signs: Vital Signs Temp Pulse Pulse Resp BP BP BP 03/25/20 11:52 37.3 C 88 20 151/64 H 03/25/20 08:39 83 120/59 L 03/25/20 08:00 37.4 C 83 20 120/59 L 03/25/20 06:10 37.4 C 90 20 109/43 L Pulse Ox 03/25/20 11:52 92 L 03/25/20 08:39 03/25/20 08:00 92 L 03/25/20 06:10 90 L - Problem List & Annotations (1) COVID-19 SNOMED Code(s): 099254546 Code(s): U07.1 - COVID-19 Status: Acute Priority: High Current Visit: Yes Onset Date: ~03/23/20 Annotation/Comment:: COVID-19 rapid screen positive. Chest xray shows peripheral changes consistent with Covid-19 infection. O2 sats 90-92% on room air with respiratory rate 20. Note the patient was started on IV Rocephin at admission with no direct clinical evidence of sepsis despite patient's fever and mild lactic acid elevation this morning. Additional doxycycline therapy secondary to his COVID-19 with consideration of ANJEL inhibitor therapy. IV Pepcid therapy was also initiated. Patient does not need supplemental O2 and is not a candidate for remdesivir, etc. at this time. (2) Weakness SNOMED Code(s): 15931808 Code(s): R53.1 - WEAKNESS Status: Acute Priority: High Current Visit: Yes Onset Date: ~03/21/20 Annotation/Comment:: Improving slowly. Likely secondary to COVID-19 infection. (3) D-dimer, elevated SNOMED Code(s): 491981644 Code(s): R79.89 - OTHER SPECIFIED ABNORMAL FINDINGS OF BLOOD CHEMISTRY Status: Acute Priority: High Current Visit: Yes Onset Date: 03/24/20 Annotation/Comment:: Consistent with Covid infection. Negative CT of chest for PE. Negative LE US studies. SQ Lovenox initiated. (4) Elevated lactic acid level SNOMED Code(s): 6506828 Code(s): R79.89 - OTHER SPECIFIED ABNORMAL FINDINGS OF BLOOD CHEMISTRY Status: Acute Priority: High Current Visit: Yes Onset Date: 03/24/20 Annotation/Comment:: Has normalized. Blood cultures negative at this time. (5) Hypokalemia SNOMED Code(s): 09461789 Code(s): E87.6 - HYPOKALEMIA Status: Acute Priority: Medium Current Visit: Yes Onset Date: 03/23/20 Annotation/Comment:: Improved. (6) Complete right bundle branch block (RBBB) SNOMED Code(s): 317778231 Code(s): I45.10 - UNSPECIFIED RIGHT BUNDLE-BRANCH BLOCK Status: Acute Priority: Medium Current Visit: Yes Onset Date: 03/24/20 Annotation/Comment:: No chest pain or anginal type symptoms despite mild change in his troponin I likely secondary to mild fluid overload. (7) Hypocalcemia SNOMED Code(s): 5399722 Code(s): E83.51 - HYPOCALCEMIA Status: Acute Priority: Medium Current Visit: Yes Onset Date: 03/24/20 Annotation/Comment:: Normal on admission. Observe for now. (8) COPD (chronic obstructive pulmonary disease) SNOMED Code(s): 50379193 Code(s): J44.9 - CHRONIC OBSTRUCTIVE PULMONARY DISEASE, UNSPECIFIED Status: Chronic Current Visit: Yes Qualifiers: COPD type: emphysema Emphysema type: panlobular Qualified Code(s): J43.1 - Panlobular emphysema Annotation/Comment:: Significant emphysematous changes on CT per Radiology. Incentive spirometry was initiated on 03/24, however, with additional inhaler therapy depending on his clinical course. (9) Hypertension SNOMED Code(s): 75412584 Code(s): I10 - ESSENTIAL (PRIMARY) HYPERTENSION Status: Chronic Priority: Medium Current Visit: Yes Qualifiers: Hypertension type: essential hypertension Qualified Code(s): I10 - Essential (primary) hypertension Annotation/Comment:: Blood pressure was verbal during initial phases of hospitalization, however overall under good control. Consider ANJEL inhibitor therapy in light of patient's COVID-19 infection, etc. (10) Osteoarthritis SNOMED Code(s): 481373463 Code(s): M19.90 - UNSPECIFIED OSTEOARTHRITIS, UNSPECIFIED SITE Status: Chronic Priority: Medium Current Visit: Yes Qualifiers: Osteoarthritis location: multiple joints Osteoarthritis type: primary Qualified Code(s): M89.49 - Other hypertrophic osteoarthropathy, multiple sites Annotation/Comment:: Stable by history despite his current COVID-19 infection. (11) Peptic reflux disease SNOMED Code(s): 537952301 Code(s): K21.9 - GASTRO-ESOPHAGEAL REFLUX DISEASE WITHOUT ESOPHAGITIS Status: Chronic Priority: Medium Current Visit: Yes Annotation/Comment:: Stable by history. IV Pepcid initiated on 03/24 as above. - Problem List Review Problem List Initiated/Reviewed/Updated: Yes - Assessment Assessment:: As above. - Plan Plan:: As above. Extensive precautions were given to the patient, who is in agreement with the treatment plan. The patient will likely require an additional 2 days of hospitalization with consideration of Swing Bed admission due to continued weakness and inability to perform ADLs safely. PT and OT consult.
[2020-03-25] MEDS: Acetaminophen 325 MG Tab PO PRN (17:52)
[2020-03-25] MEDS ORDERED: Dexamethasone 10 MG/ML SDV IVPUSH ONE (18:54)
--- NOTE | 2020-03-25 19:42 | PCM.DCSUM1 ---
Discharge Summary - Hospital Course Brief History: Patient admitted for further evaluation of extreme weakness/hypokalemia/hyponatremia. Found to have Covid-19 infection. Diagnosis: Stroke: No - Discharge Data Discharge Date: 03/25/20 Discharge Disposition: DC/Tfer to Acute Hospital 02 Condition: Good - Referral to Home Health Primary Care Physician: PCP None - Discharge Diagnosis/Problem(s) (1) COVID-19 SNOMED Code(s): 617227591 ICD Code: U07.1 - COVID-19 Status: Acute Priority: High Current Visit: Yes Onset Date: ~03/23/20 Problem Details: COVID-19 rapid screen positive. Chest xray showed peripheral changes consistent with Covid-19 infection. Patient was started on IV Rocephin at admission with no direct clinical evidence of sepsis. Additional doxycycline therapy secondary to his COVID-19 started yesterday. Patient did not need supplemental O2 and was not a candidate for remdesivir, etc. at time of admission. Noted to develop room air O2 sats in high 70s/mid 80s this evening. Placed on NC O2 at 2L. Sats improved over 90% overall. Low grade temp present at times. Decision to transfer patient to [facility] made due to developing the oxygen requirement in addition to mild confusion noted this evening. Family made aware of changes and supported move to higher level of care. (2) Weakness SNOMED Code(s): 53818517 ICD Code: R53.1 - WEAKNESS Status: Acute Priority: High Current Visit: Yes Onset Date: ~03/21/20 Problem Details: Improving slowly. Likely secondary to COVID-19 infection. (3) D-dimer, elevated SNOMED Code(s): 418739563 ICD Code: R79.89 - OTHER SPECIFIED ABNORMAL FINDINGS OF BLOOD CHEMISTRY Status: Acute Priority: High Current Visit: Yes Onset Date: 03/24/20 Problem Details: Consistent with Covid infection. Negative CT of chest for PE. Negative LE US studies. SQ Lovenox initiated. (4) Elevated lactic acid level SNOMED Code(s): 4952352 ICD Code: R79.89 - OTHER SPECIFIED ABNORMAL FINDINGS OF BLOOD CHEMISTRY Status: Acute Priority: High Current Visit: Yes Onset Date: 03/24/20 Problem Details: Has normalized. Blood cultures negative at this time. (5) Hypokalemia SNOMED Code(s): 75664138 ICD Code: E87.6 - HYPOKALEMIA Status: Acute Priority: Medium Current Visit: Yes Onset Date: 03/23/20 Problem Details: Improved. (6) Complete right bundle branch block (RBBB) SNOMED Code(s): 767822198 ICD Code: I45.10 - UNSPECIFIED RIGHT BUNDLE-BRANCH BLOCK Status: Acute Priority: Medium Current Visit: Yes Onset Date: 03/24/20 Problem Details: No chest pain or anginal type symptoms despite mild change in his troponin I likely secondary to mild fluid overload. (7) Hypocalcemia SNOMED Code(s): 4405383 ICD Code: E83.51 - HYPOCALCEMIA Status: Acute Priority: Medium Current Visit: Yes Onset Date: 03/24/20 Problem Details: Normal on admission. Observe for now. (8) COPD (chronic obstructive pulmonary disease) SNOMED Code(s): 92684358 ICD Code: J44.9 - CHRONIC OBSTRUCTIVE PULMONARY DISEASE, UNSPECIFIED Status: Chronic Current Visit: Yes Problem Details: Significant emphysematous changes on CT per Radiology. Incentive spirometry was initiated on 03/24, however, with additional inhaler therapy depending on his clinical c ourse. Qualifiers: COPD type: emphysema Emphysema type: panlobular Qualified Code(s): J43.1 - Panlobular emphysema (9) Hypertension SNOMED Code(s): 37489110 ICD Code: I10 - ESSENTIAL (PRIMARY) HYPERTENSION Status: Chronic Priority: Medium Current Visit: Yes Problem Details: Blood pressure was verbal during initial phases of hospitalization, however overall under good control. Consider ANJEL inhibitor therapy in light of patient's COVID-19 infection, etc. Qualifiers: Hypertension type: essential hypertension Qualified Code(s): I10 - Essential (primary) hypertension (10) Osteoarthritis SNOMED Code(s): 218685765 ICD Code: M19.90 - UNSPECIFIED OSTEOARTHRITIS, UNSPECIFIED SITE Status: Chronic Priority: Medium Current Visit: Yes Problem Details: Stable by history despite his current COVID-19 infection. Qualifiers: Osteoarthritis location: multiple joints Osteoarthritis type: primary Qualified Code(s): M89.49 - Other hypertrophic osteoarthropathy, multiple sites (11) Peptic reflux disease SNOMED Code(s): 038988437 ICD Code: K21.9 - GASTRO-ESOPHAGEAL REFLUX DISEASE WITHOUT ESOPHAGITIS Status: Chronic Priority: Medium Current Visit: Yes Problem Details: Stable by history. IV Pepcid initiated on 03/24 as above. - Patient Summary/Data Hospital Course: Patient showed initial improvement after admission. Improved weakness but still required assistance with ambulation. Covid testing showed positive result. Hyponatremia and hypokalemia improved as did elevated lactic acid level. Negative CTA of chest for PEs. Negative US of LE for DVT. Patchy changes suggestive of Covid 19 pattern/pneumonia noted on chest xray. Patient received both Doxy and Rocephin coverage. He did not meet criteria for Remdesivir/Dexamethasone. PT and OT consults requested. Noted to have changing O2 sats on room air later afternoon today. Had been doing well with sats in 90s on room air with normal respiratory rate. Noted to drop at times to 80s, at one time noted to be 78%. No obvious respiratory distress however. Patient also noted to be mildly confused at times, a change when compared to how he was the first part of his hospitalization. Started on 2L O2 NC and sats climbed over 90. Call placed to family to discuss the respiratory/cognitive changes and potential transfer to higher LOC in case patient continues to decline from the Covid infection given his full code status. Patient's daughter requested transfer to [facility] in [place]. Patient accepted by for transfer. Dexamethasone IV given prior to transfer. - Discharge Plan *PRESCRIPTION DRUG MONITORING PROGRAM REVIEWED*: Not Applicable *COPY OF PRESCRIPTION DRUG MONITORING REPORT IN PATIENT TINO: Not Applicable Home Medications: Home Meds Ascorbic Acid [Vitamin C] 1,000 mg PO DAILY 06/02/17 [History] Aspirin [Halfprin] 81 mg PO QAM 06/02/17 [History] Cholecalciferol (Vitamin D3) [Vitamin D3] 2 cap PO DAILY 06/02/17 [History] Cyanocobalamin/Folic AC/Vit B6 [Folbee] 1 tab PO DAILY 06/02/17 [History] Fluticasone Propionate [Flonase] 2 spray NASBOTH DAILY 06/02/17 [History] Non-Formulary Medication [NF Drug] 2 ml PO BID 06/02/17 [History] Pramoxine HCl [Prax] 1 applic TP ASDIRECTED PRN 06/02/17 [History] amLODIPine [Norvasc] 10 mg PO BEDTIME 06/02/17 [History] Omeprazole 20 mg PO DAILY 03/06/19 [History] Mometasone Furoate [Asmanex 220 MCG] 1 puff PO DAILY 03/07/19 [History] Acetaminophen [Tylenol] 650 mg PO Q4H PRN tablet 03/15/19 [Rx] Calcium Carbonate [Tums Extra Strength] 1,500 mg PO DAILY tab.chew 03/15/19 [Rx] Cyclobenzaprine [Flexeril] 10 mg PO Q8HR PRN 4 Days #12 tablet 03/15/19 [Rx] Finasteride 1 tab PO DAILY 30 Days #30 tablet 03/15/19 [Rx] atenoloL [Atenolol] 1 tab PO BID 30 Days #60 tablet 03/15/19 [Rx] atorvaSTATin Calcium [Atorvastatin Calcium] 80 mg PO DAILY 30 Days #30 tablet 03/15/19 [Rx] Cyanocobalamin/Folic AC/Vit B6 [[place] One Tablet] 1 tab PO DAILY 03/23/20 [History] Forms: ED Department Discharge Referrals: PCP,None [Primary Care Provider] - - Discharge Summary/Plan Comment DC Time >30 min.: Yes (waiting for bed confirmation) - Patient Data Vitals - Most Recent: Last Vital Signs Temp 37.8 C 03/25/20 17:53 Pulse 87 03/25/20 17:25 Resp 20 03/25/20 17:17 BP 138/61 03/25/20 17:25 Pulse Ox 95 03/25/20 17:58 Weight - Most Recent: 98.43 kg I&O - Last 24 hours: Intake & Output 03/25/20 03/25/20 03/25/20 06:59 14:59 22:59 Intake Total 800 1420 960 Balance 800 1420 960 Lab Results - Last 24 hrs: Laboratory Results - last 24 hr 03/25/20 03/25/20 03/25/20 Range/Units 07:15 07:15 07:15 WBC 5.4 (4.0-10.2) K/uL RBC 4.37 (4.33-5.41) M/uL Hgb 13.4 (13.1-16.8) g/dL Hct 40.2 (39.0-49.0) % MCV 92.0 (84.0-98.0) fL MCH 30.7 (28.2-33.3) pg MCHC 33.3 (31.7-36.0) g/dL RDW 14.1 (11.2-14.1) % Plt Count 167 (150-350) K/uL Neut % (Auto) 72.0 (45.0-80.0) % Lymph % (Auto) 17.0 (10.0-50.0) % [place] % (Auto) 10.8 (2.0-14.0) % Eos % (Auto) 0.0 (0.0-5.0) % Baso % (Auto) 0.2 (0.0-2.0) % Neut # (Auto) 3.86 (1.40-7.00) K/uL Lymph # (Auto) 0.91 (0.50-3.50) K/uL [place] # (Auto) 0.58 (0.00-1.00) K/uL Eos # (Auto) 0.00 (0.00-0.50) K/uL Baso # (Auto) 0.01 (0.00-0.20) K/uL PT 9.8 (9.5-12.0) SEC INR 1.0 APTT 34.1 H (24.5-32.8) SEC D-Dimer, Quantitative 2420 H (0-400) ng/mL Sodium (136-145) mmol/L Potassium (3.5-5.1) mmol/L Chloride (98-107) mmol/L Carbon Dioxide (21.0-32.0) mmol/L BUN (7-18) mg/dL Creatinine (0.51-1.17) mg/dL Est Cr Clr Drug Dosing mL/min Estimated GFR (MDRD) mL/min Glucose (74-106) mg/dL Lactic Acid (0.4-2.0) mmol/L Calcium (8.5-10.1) mg/dL Total Bilirubin (0.2-1.0) mg/dL AST (15-37) U/L ALT (12-78) U/L Alkaline Phosphatase (46-116) IU/L Creatine Kinase (26-308) U/L Creatine Kinase Index (0.0-2.5) % CK-MB (CK-2) (0.00-3.60) ng/mL Troponin I (0.000-0.056) ng/mL NT-Pro-B Natriuret Pep (0-125) pg/mL Total Protein (6.4-8.2) g/dL Albumin (3.4-5.0) g/dL 03/25/20 03/25/20 Range/Units 07:15 07:15 WBC (4.0-10.2) K/uL RBC (4.33-5.41) M/uL Hgb (13.1-16.8) g/dL Hct (39.0-49.0) % MCV (84.0-98.0) fL MCH (28.2-33.3) pg MCHC (31.7-36.0) g/dL RDW (11.2-14.1) % Plt Count (150-350) K/uL Neut % (Auto) (45.0-80.0) % Lymph % (Auto) (10.0-50.0) % [place] % (Auto) (2.0-14.0) % Eos % (Auto) (0.0-5.0) % Baso % (Auto) (0.0-2.0) % Neut # (Auto) (1.40-7.00) K/uL Lymph # (Auto) (0.50-3.50) K/uL [place] # (Auto) (0.00-1.00) K/uL Eos # (Auto) (0.00-0.50) K/uL Baso # (Auto) (0.00-0.20) K/uL PT (9.5-12.0) SEC INR APTT (24.5-32.8) SEC D-Dimer, Quantitative (0-400) ng/mL Sodium 138 (136-145) mmol/L Potassium 3.4 L (3.5-5.1) mmol/L Chloride 103 (98-107) mmol/L Carbon Dioxide 27.5 (21.0-32.0) mmol/L BUN 17 (7-18) mg/dL Creatinine 1.00 (0.51-1.17) mg/dL Est Cr Clr Drug Dosing 65.62 mL/min Estimated GFR (MDRD) > 60 mL/min Glucose 103 (74-106) mg/dL Lactic Acid 1.4 (0.4-2.0) mmol/L Calcium 7.8 L (8.5-10.1) mg/dL Total Bilirubin 0.4 (0.2-1.0) mg/dL AST 41 H (15-37) U/L ALT 56 (12-78) U/L Alkaline Phosphatase 51 (46-116) IU/L Creatine Kinase 317 H (26-308) U/L Creatine Kinase Index 0.3 (0.0-2.5) % CK-MB (CK-2) 1.10 (0.00-3.60) ng/mL Troponin I 0.021 (0.000-0.056) ng/mL NT-Pro-B Natriuret Pep 1374 H (0-125) pg/mL Total Protein 6.9 (6.4-8.2) g/dL Albumin 2.7 L (3.4-5.0) g/dL MACHO Results - Last 24 hrs: Microbiology 03/24/20 00:25 Aerobic Blood Culture - Preliminary Blood - Venous NO GROWTH AFTER 1 DAY Anaerobic Blood Culture - Preliminary NO GROWTH AFTER 1 DAY 03/24/20 00:30 Aerobic Blood Culture - Preliminary Blood - Venous - Lab Draw NO GROWTH AFTER 1 DAY Anaerobic Blood Culture - Preliminary NO GROWTH AFTER 1 DAY Med Orders - Current: Current Medications Acetaminophen (Tylenol) 650 mg PO Q4H PRN PRN Reason: analgesia/fever Last Admin: 03/25/20 17:52 Dose: 650 mg Documented by: Al Hydroxide/Mg Hydroxide (Mag-Al Plus) 30 ml PO Q4H PRN PRN Reason: Dyspepsia Amlodipine Besylate (Norvasc) 10 mg PO BEDTIME [facility] Last Admin: 03/24/20 20:00 Dose: Not Given Documented by: Ascorbic Acid (Vitamin C) 1,000 mg PO DAILY [facility] Last Admin: 03/25/20 08:36 Dose: 1,000 mg Documented by: Aspirin (Halfprin) 81 mg PO QAM [facility] Last Admin: 03/25/20 08:39 Dose: 81 mg Documented by: Atenolol (Tenormin) 25 mg PO BID [facility] Last Admin: 03/25/20 17:25 Dose: 25 mg Documented by: Atorvastatin Calcium (Lipitor) 80 mg PO DAILY [facility] Last Admin: 03/25/20 08:32 Dose: 80 mg Documented by: Calcium Carbonate/Glycine (Tums Extra Strength) 1,500 mg PO DAILY [facility] Last Admin: 03/25/20 08:33 Dose: 1,500 mg Documented by: Cholecalciferol (Vitamin D3) 20 mcg PO DAILY [facility] Last Admin: 03/25/20 08:33 Dose: 20 mcg Documented by: Cyclobenzaprine HCl (Flexeril) 10 mg PO Q8HR PRN PRN Reason: Other Doxycycline Monohydrate (Doxycycline Monohydrate) 100 mg PO BID [facility] Last Admin: 03/25/20 17:25 Dose: 100 mg Documented by: Enoxaparin Sodium (Lovenox) 100 mg SUBCUT Q24H [facility] Last Admin: 03/25/20 11:50 Dose: 100 mg Documented by: Famotidine (Pepcid) 20 mg IVPUSH Q12H [facility] Last Admin: 03/25/20 08:39 Dose: 20 mg Documented by: Finasteride (Proscar) 5 mg PO DAILY [facility] Last Admin: 03/25/20 08:38 Dose: 5 mg Documented by: Fluticasone Propionate (Flonase) 0 gm NASBOTH DAILY [facility] Last Admin: 03/25/20 08:31 Dose: 2 spray Documented by: Ceftriaxone Sodium 1 gm/ (Sodium Chloride) 100 mls @ 200 mls/hr IV Q12H [facility] Last Admin: 03/25/20 08:30 Dose: 200 mls/hr Documented by: Magnesium Hydroxide (Milk Of Magnesia) 30 ml PO BID PRN PRN Reason: Constipation Multivitamins/Folic Acid/Vitamin C (Cerovite Jr) 1 each PO DAILY [facility] Last Admin: 03/25/20 08:36 Dose: 1 each Documented by: Non-Formulary Medication (Pramoxine Hcl [Prax]) 1 applic TP ASDIRECTED PRN PRN Reason: Itching Omeprazole (Omeprazole) 20 mg PO DAILY [facility] Last Admin: 03/25/20 08:32 Dose: 20 mg Documented by: Ondansetron HCl (Zofran) 4 mg IVPUSH Q6H PRN PRN Reason: Nausea/Vomiting Last Admin: 03/24/20 10:17 Dose: 4 mg Documented by: Sodium Chloride (Saline Flush) 10 ml FLUSH ASDIRECTED PRN PRN Reason: Other Last Admin: 03/25/20 08:47 Dose: 10 ml Documented by: Discontinued Medications Dexamethasone (Dexamethasone) 6 mg IVPUSH ONETIME ONE Stop: 03/25/20 18:55 Famotidine (Pepcid) 20 mg IVPUSH Q12H [facility] Last Admin: 03/24/20 10:19 Dose: 20 mg Documented by: Potassium Chloride/Sodium Chloride (Normal Saline With 20 Meq Kcl) 1,000 mls @ 100 mls/hr IV ASDIRECTED [facility] Last Admin: 03/24/20 04:23 Dose: 100 mls/hr Documented by: Ceftriaxone Sodium 1 gm/ (Sodium Chloride) 100 mls @ 200 mls/hr IV Q24H [facility] Last Admin: 03/23/20 18:23 Dose: 200 mls/hr Documented by: Lactated Ringer's (Ringers, Lactated) 1,000 mls @ 999 mls/hr IV .BOLUS ONE Stop: 03/24/20 10:57 Last Admin: 03/24/20 10:21 Dose: 999 mls/hr Documented by: Iopamidol (Isovue-370 (76%)) 100 ml IVPUSH ONETIME ONE Stop: 03/24/20 10:12 Last Admin: 03/24/20 10:53 Dose: 100 ml Documented by:
[2020-03-25] MEDS: amLODIPine 5 MG Tab PO SCH (20:00)
== END 2020-03-25 21:10 | DRG 177 ==
LOC: LL.ED 15:31 → UNDOADMIN 17:02 → LL.MS 17:02
PROVIDERS: ADMIT Family Medicine; ATTEND Family Medicine
DX: U07.1 COVID-19 (principal); J18.9 Pneumonia, unspecified organism; E87.1 Hypo-osmolality and hyponatremia; E87.6 Hypokalemia; Z88.8 Allergy status to other drugs, medicaments and biological substances; Z79.82 Long term (current) use of aspirin; Z79.899 Other long term (current) drug therapy; R53.1 Weakness; R79.89 Other specified abnormal findings of blood chemistry; J44.9 Chronic obstructive pulmonary disease, unspecified; Z87.442 Personal history of urinary calculi; I45.10 Unspecified right bundle-branch block; E83.51 Hypocalcemia; M81.0 Age-related osteoporosis without current pathological fracture; E55.9 Vitamin D deficiency, unspecified; J43.1 Panlobular emphysema; I10 Essential (primary) hypertension; M19.90 Unspecified osteoarthritis, unspecified site; M89.49 Other hypertrophic osteoarthropathy, multiple sites; K21.9 Gastro-esophageal reflux disease without esophagitis; R32 Unspecified urinary incontinence; N40.0 Benign prostatic hyperplasia without lower urinary tract symptoms; E78.00 Pure hypercholesterolemia, unspecified; E27.8 Other specified disorders of adrenal gland; N28.1 Cyst of kidney, acquired; I51.7 Cardiomegaly; R00.0 Tachycardia, unspecified; Z91.09 Other allergy status, other than to drugs and biological substances; Z79.01 Long term (current) use of anticoagulants; Z87.891 Personal history of nicotine dependence
CPT/HCPCS: 36415; 71045; 71046; 80053; 85025; 99285; U0002; 71275; 80048; 81001; 82550; 82553; 83605; 83880; 84484; 85379; 85610; 85730; 87040; 93005; 93010; 93970; 99222; 99232; 99239; A9270-GY; J0696; J1100; J1650; J2405; J3480; J3490; J7120; Q9967